=== PATIENT | male | born 1940 | race Caucasian/White ===

== ENCOUNTER 2016-10-07 20:50 | Emergency (ER) | payer MEDICARE, BC ==
[2016-10-07] MEDS ORDERED: methylPREDNISolone Sodium Succinate 125 MG/2 ML SDV IVPUSH ONE (20:57)
[2016-10-07] MEDS ORDERED: Sodium Chloride 0.9% 1,000 ML IV SCH (21:00)
[2016-10-07] MEDS ORDERED: diphenhydrAMINE 50 MG/ML SDV IVPUSH ONE (21:32)
[2016-10-07 21:43] VITALS: BP 132/78
--- NOTE | 2016-10-07 22:26 | EDM.PDOC ---
ED HPI GENERAL MEDICAL PROBLEM - General Chief Complaint: Allergic Reaction Stated Complaint: SWOLLEN TONGUE AND THROAT Time Seen by Provider: 10/07/16 20:54 Source of Information: Reports: Patient History Limitations: Reports: No Limitations - History of Present Illness INITIAL COMMENTS - FREE TEXT/NARRATIVE: History of present illness: [76-year-old male presents with a swollen tongue he said about 45 episodes of angioedema he usually treats himself with Benadryl and it goes away in this for studies comes the ER. He's had angioedema of his eyebrows and face but this first-time he's had of his tonsils been going on for last couple of months. Incidentally just a couple months ago result a swelling was increased from once a day to twice a day. Said no fevers or chills or cough cold symptoms. Denies any respiratory distress at this time.] Review of systems: As per history of present illness and below otherwise all systems reviewed and negative. Past medical history: As per history of present illness and as reviewed below otherwise noncontributory. Surgical history: As per history of present illness and as reviewed below otherwise noncontributory. Social history: No reported history of drug or alcohol abuse. Family history: As per history of present illness and as reviewed below otherwise noncontributory. Physical exam: HEENT: Atraumatic, normocephalic, pupils reactive, negative for conjunctival pallor or scleral icterus, tongue is swollen somewhat asymmetrically the right side more than the left. He speaks with a muffled voice but is exhibiting no respiratory distress, throat clear, neck supple, nontender, trachea midline. Lungs: Clear to auscultation, Heart: S1S2, regular, negative for clicks, rubs, or JVD. Abdomen: Soft, nondistended, nontender. Neuro: Awake, alert, oriented. Exam nonfocal. Diagnostics: [] Therapeutics: [Patient received IV fluids IV Benadryl and IV Solu-Medrol 125 mg and felt like his tongue swelling started to subside.] Impression: [Angioedema] Plan: [I suspect this is due to all today's and/or Diovan and I'm recommending a follow-up with his primary care doctor to discuss this with him or her. Since he had this increase in all today's 2 months ago and now is having more trouble I'm recommending he does take it once a day until he gets a chance to see his doctor. He sent out with some prednisone and will be using [id number] Benadryl as well to manage his problem return to the ER if he develops any respiratory difficulties.] Definitive disposition and diagnosis as appropriate pending reevaluation and review of above. - Related Data Allergies Allergy/AdvReac Type Severity Reaction Status Date / Time carbamazepine Allergy Rash Verified 10/07/16 21:20 diltiazem Allergy Itching Verified 10/07/16 21:26 Home Meds: Home Meds Aspirin [[place] Aspirin] 81 mg PO DAILY 03/25/13 [History] Ezetimibe/Simvastatin [Vytorin 10-40 mg Tablet] 1 tab PO DAILY 03/25/13 [History ] Furosemide 40 mg PO DAILY 03/25/13 [History] Indomethacin [Indocin] 25 mg PO TID PRN 03/25/13 [History] Metoprolol Succinate [Toprol XL] 75 mg PO BID 03/25/13 [History] Potassium Chloride 10 meq PO BID 03/25/13 [History] Ramipril [Altace] 10 mg PO BID 03/25/13 [History] Valsartan/Hydrochlorothiazide [[place] HCTZ 160-25 MG] 160 tab PO DAILY 03/25/13 [History] metFORMIN [Glucophage] 500 mg PO BID 03/25/13 [History] Nitroglycerin [Nitrostat] 0.4 mg SL ASDIRECTED PRN 01/26/15 [History] Sertraline [Zoloft] 50 mg PO DAILY 01/26/15 [History] Past Medical History HEENT History: Reports: Hard of Hearing Cardiovascular History: Reports: Afib, Aneurysm, Hypertension, [place] Musculoskeletal History: Reports: Arthritis Neurological History: Reports: Headaches, Chronic, Migraines Endocrine/Metabolic History: Reports: Diabetes, Type II - Past Surgical History Cardiovascular Surgical History: Reports: Coronary Artery Bypass, Coronary Artery Stent, Other (See Below) Other Cardiovascular Surgeries/Procedures: electric cardioversion Social & Family History - Tobacco Use Smoking Status *Q: Never Smoker - Caffeine Use Caffeine Use: Reports: Soda - Alcohol Use Days Per Week of Alcohol Use: 0 - Recreational Drug Use Recreational Drug Use: No ED ROS ALLERGIC REACTION - Review of Systems Review Of Systems: ROS reveals no pertinent complaints other than HPI. ED EXAM GENERAL NO PERIP PULSE - Physical Exam Exam: See Below Course - Vital Signs Last Recorded V/S: Last Vital Signs Temp 36.4 C 10/07/16 21:26 Pulse 55 L 10/07/16 21:42 Resp 18 10/07/16 21:42 BP 132/78 10/07/16 21:42 Pulse Ox 95 10/07/16 21:42 - Orders/Labs/Meds Orders: Active Orders 24 hr Category Date Time Status Sodium Chloride 0.9% [Normal Saline] 1,000 ml Med 10/07/16 21:00 Active IV ASDIRECTED Medication Orders Sodium Chloride (Normal Saline) 1,000 mls @ 250 mls/hr IV ASDIRECTED JEFF Last Admin: 10/07/16 21:09 Dose: 250 mls/hr Meds: Medications Generic Name Dose Route Start Last Admin Trade Name Freq PRN Reason Stop Dose Admin Sodium Chloride 1,000 mls @ 250 mls/hr 10/07/16 21:00 10/07/16 21:09 Normal Saline IV 250 mls/hr ASDIRECTED JEFF Administration Discontinued Medications Generic Name Dose Route Start Last Admin Trade Name Freq PRN Reason Stop Dose Admin Diphenhydramine HCl 50 mg 10/07/16 21:32 10/07/16 21:39 Benadryl IVPUSH 10/07/16 21:33 50 mg ONETIME ONE Administration Methylprednisolone Sodium Succinate 125 mg 10/07/16 20:57 10/07/16 21:09 Solu-Medrol IVPUSH 10/07/16 20:58 125 mg ONETIME ONE Administration Departure - Departure Time of Disposition: 22:24 Disposition: Home, Self-Care 01 Condition: Good Clinical Impression: Angioedema Qualifiers: Encounter type: initial encounter Qualified Code(s): T78.3XXA - Angioneurotic edema, initial encounter - Discharge Information Referrals: Frances Katz PA [Primary Care Provider] - Additional Instructions: By review we are thinking that this is due to your Diovan and/or Ramapril. I am recommending that you decrease your Ramapril to once a day until you see your doctor. - My Orders Last 24 Hours: My Active Orders 10/07/16 21:00 Sodium Chloride 0.9% [Normal Saline] 1,000 ml IV ASDIRECTED - Assessment/Plan Last 24 Hours: My Active Orders 10/07/16 21:00 Sodium Chloride 0.9% [Normal Saline] 1,000 ml IV ASDIRECTED
== END 2016-10-07 22:38 | disposition home or self-care (01) ==
LOC: JP.ED 20:50
DX: T78.3XXA Angioneurotic edema, initial encounter (principal); I25.2 Old myocardial infarction; I48.91 Unspecified atrial fibrillation; I10 Essential (primary) hypertension; M19.90 Unspecified osteoarthritis, unspecified site; E11.9 Type 2 diabetes mellitus without complications; Z95.1 Presence of aortocoronary bypass graft; Z95.5 Presence of coronary angioplasty implant and graft; Z98.890 Other specified postprocedural states; Z79.82 Long term (current) use of aspirin; Z79.84 Long term (current) use of oral hypoglycemic drugs; Z79.899 Other long term (current) drug therapy; Z88.8 Allergy status to other drugs, medicaments and biological substances
CPT/HCPCS: 96361; 96374; 96375; 99283; J1200; J2930; J7040; 99284

== ENCOUNTER 2016-11-28 17:01 | Emergency (ER) | payer MEDICARE, BC ==
[2016-11-28] MEDS ORDERED: Lidocaine 1% 20 ML MDV INJECT ONE (17:17)
--- NOTE | 2016-11-28 17:26 | EDM.PDOC ---
ED HPI GENERAL MEDICAL PROBLEM - General Chief Complaint: Laceration Stated Complaint: CUT LEFT RING FINGER Time Seen by Provider: 11/28/16 17:15 Source of Information: Reports: Patient History Limitations: Reports: No Limitations - History of Present Illness INITIAL COMMENTS - FREE TEXT/NARRATIVE: Cash is a 76-year-old diabetic male who presents to the emergency department today after sustaining a crush injury to his left fourth digit. Patient reports he got his finger stuck in between the slats of the garage door as it was closing. Tetanus is up-to-date, patient denies any other injuries. Patient has not taken anything for pain prior to arrival. Onset: Today, Sudden left ring finger\ Pain Score (Numeric/FACES): 5 - Related Data Allergies Allergy/AdvReac Type Severity Reaction Status Date / Time carbamazepine Allergy Rash Verified 10/07/16 21:20 diltiazem Allergy Itching Verified 10/07/16 21:26 hydrochlorothiazide Allergy Swollen Verified 11/28/16 17:51 Tongue ramipril Allergy Swollen Verified 11/28/16 17:51 Tongue valsartan Allergy Swollen Verified 11/28/16 17:51 Tongue Home Meds: Home Meds Aspirin [[place] Aspirin] 81 mg PO DAILY 03/25/13 [History] Ezetimibe/Simvastatin [Vytorin 10-40 mg Tablet] 1 tab PO DAILY 03/25/13 [History ] Furosemide 40 mg PO DAILY 03/25/13 [History] Indomethacin [Indocin] 25 mg PO TID PRN 03/25/13 [History] Metoprolol Succinate [Toprol XL] 75 mg PO BID 03/25/13 [History] Potassium Chloride 10 meq PO BID 03/25/13 [History] Ramipril [Altace] 10 mg PO BID 03/25/13 [History] Valsartan/Hydrochlorothiazide [[place] HCTZ 160-25 MG] 160 tab PO DAILY 03/25/13 [History] metFORMIN [Glucophage] 500 mg PO BID 03/25/13 [History] Nitroglycerin [Nitrostat] 0.4 mg SL ASDIRECTED PRN 01/26/15 [History] Sertraline [Zoloft] 50 mg PO DAILY 01/26/15 [History] Past Medical History HEENT History: Reports: Hard of Hearing Cardiovascular History: Reports: Afib, Aneurysm, Hypertension, [place] Musculoskeletal History: Reports: Arthritis Neurological History: Reports: Headaches, Chronic, Migraines Endocrine/Metabolic History: Reports: Diabetes, Type II - Past Surgical History Cardiovascular Surgical History: Reports: Coronary Artery Bypass, Coronary Artery Stent, Other (See Below) Other Cardiovascular Surgeries/Procedures: electric cardioversion Social & Family History - Tobacco Use Smoking Status *Q: Never Smoker - Caffeine Use Caffeine Use: Reports: Soda - Alcohol Use Days Per Week of Alcohol Use: 0 - Recreational Drug Use Recreational Drug Use: No ED ROS GENERAL - Review of Systems Review Of Systems: ROS reveals no pertinent complaints other than HPI. ED EXAM, SKIN/RASH Exam: See Below Exam Limited By: No Limitations General Appearance: Alert, WD/WN, No Apparent Distress Respiratory/Chest: No Respiratory Distress, Lungs Clear Cardiovascular: Regular Rate, Rhythm Extremities: Normal Inspection, Normal Range of Motion Neurological: Alert, Oriented, CN II-XII Intact Psychiatric: Normal Affect, Normal Mood Skin: Warm, Dry, Other (U-shaped 2 mm x 3 mm crush injury/laceration to palmar aspect of left fourth digit, distal phalanges. Concern for open fracture, x-ray pending.) ED SKIN PROCEDURES - Laceration/Wound Repair Left Finger Appearance: Subcutaneous Distal NVT: Neuro & Vascular Intact, No Tendon Injury Anesthetic Type: Digital Local Anesthesia - Lidocaine (Xylocaine): 1% Plain Local Anesthetic Volume: Other (10) Exploration/Debridement/Repair: Wound Explored Closed with: Sutures Suture Size: other (5-0) # of Sutures: 10 (Ethilon) Suture Size: other Course - Vital Signs Last Recorded V/S: Last Vital Signs Temp 36.5 C 11/28/16 17:30 Pulse 59 L 11/28/16 17:30 Resp 17 11/28/16 17:30 BP 138/67 11/28/16 17:30 Pulse Ox 97 11/28/16 17:30 Cash is a diabetic 76-year-old male who presents to the emergency department today after sustaining a finger laceration after getting finger stuck in between the panels of his garage door. Please refer to history of present illness and focused exam, laceration is full-thickness at the distal phalangeal portion of his left fourth digit, palmar portion. X-ray was obtained to rule out tuft fracture and on my review is negative. A digital block was perfomred on patient, he tolerated well and achieved good anesthesia. Laceration repair was done as noted in procedure note. Wound care was discussed in detail. Bacitracin and tube gauze was applied, patient was instructed to apply bacitracin twice daily for the next 3 days and keep wound covered if there is any chance he would get it dirty. Given patient's diabetic history and location of his laceration I am going to start him on Keflex for infection prophylaxis. Patient can have sutures removed in 7-10 days, reasons to return to the emergency department were discussed, patient and are agreeable to plan of care and he was discharged in stable condition. - Orders/Labs/Meds Orders: Active Orders 24 hr Category Date Time Status Fingers Fourth Digit Lt F3 [CR] Stat Exams 11/28/16 17:17 Taken Bacitracin [Bacitracin Oint 1 GM] Med 11/28/16 18:03 Once 1 dose TOP ONETIME ONE Meds: Medications Discontinued Medications Generic Name Dose Route Start Last Admin Trade Name Freq PRN Reason Stop Dose Admin Lidocaine HCl 20 ml 11/28/16 17:17 11/28/16 17:22 Xylocaine 1% INJECT 11/28/16 17:18 20 ml ONETIME ONE Administration Departure - Departure Time of Disposition: 18:45 Disposition: Home, Self-Care 01 Condition: Good Clinical Impression: Laceration of finger Qualifiers: Encounter type: initial encounter Finger: ring finger Damage to nail status: without damage Foreign body presence: without foreign body Laterality: left Qualified Code(s): S61.215A - Laceration without foreign body of left ring finger without damage to nail, initial encounter - Discharge Information Instructions: Laceration Care, Adult, [id number], Stitches, [place], or Adhesive Wound Closure, [id number] Referrals: Frances Katz PA [Primary Care Provider] - Forms: ED Department Discharge Additional Instructions: Keep wound covered for 24 hours. Apply Bacitracin twice daily for the first 3 days. Keep covered/protected if any chance of getting wound dirty. Take Keflex as prescribed to prevent infection. If you experience any signs of infection since as increased redness, swelling, drainage, please be reevaluated. It was nice meeting you. Take care. - My Orders Last 24 Hours: My Active Orders 11/28/16 17:17 Fingers Fourth Digit Lt F3 [CR] Stat 11/28/16 18:03 Bacitracin [Bacitracin Oint 1 GM] 1 dose TOP ONETIME ONE - Assessment/Plan Last 24 Hours: My Active Orders 11/28/16 17:17 Fingers Fourth Digit Lt F3 [CR] Stat 11/28/16 18:03 Bacitracin [Bacitracin Oint 1 GM] 1 dose TOP ONETIME ONE
[2016-11-28 17:31] VITALS: BP 138/67
[2016-11-28] MEDS ORDERED: Bacitracin Oint 1 GM U/D Packet TOP ONE (18:03)
--- NOTE | 2016-12-01 10:02 | CR ---
Left fourth finger There is normal alignment. There is no fracture. There is a soft tissue injury of the distal finger. Impression: 1. Soft tissue injury without fracture.
== END 2016-11-28 18:24 | disposition home or self-care (01) ==
LOC: JP.ED 17:01
DX: S61.215A Laceration without foreign body of left ring finger without damage to nail, initial encounter (principal); Z88.8 Allergy status to other drugs, medicaments and biological substances; Z79.82 Long term (current) use of aspirin; E11.9 Type 2 diabetes mellitus without complications; Z79.84 Long term (current) use of oral hypoglycemic drugs; Z79.899 Other long term (current) drug therapy; W23.0XXA Caught, crushed, jammed, or pinched between moving objects, initial encounter
CPT/HCPCS: 12001; 73140-26-F3; 73140-F3; 99282-25; 99283

== ENCOUNTER 2017-06-19 07:27 | Emergency (ER) | payer MEDICARE, BC ==
[2017-06-19 07:40] VITALS: BP 146/63
[2017-06-19] MEDS ORDERED: Acetaminophen/oxyCODONE 325-5 MG Tab PO ONE (07:49)
[2017-06-19] MEDS ORDERED: HYDROmorphone 0.5 MG/0.5 ML Syringe IM ONE (07:49)
--- NOTE | 2017-06-19 07:56 | EDM.PDOC ---
ED HPI GENERAL MEDICAL PROBLEM - General Chief Complaint: Upper Extremity Injury/Pain Stated Complaint: LEFT SHOULDER PAIN Time Seen by Provider: 06/19/17 07:53 Source of Information: Reports: Patient History Limitations: Reports: No Limitations - History of Present Illness INITIAL COMMENTS - FREE TEXT/NARRATIVE: Pt had a rotator cuff repair done in Mar. Everything went well. He was not doing anything particularly different yesterday and he did not have a fall. H got up this am and he could not move his shoulder and he is having alot of pain. Onset: Today Duration: Hour(s): Location: Reports: Upper Extremity, Left Associated Symptoms: Reports: No Other Symptoms Left Anterior Shoulder Pain Score (Numeric/FACES): 10 - Related Data Allergies Allergy/AdvReac Type Severity Reaction Status Date / Time carbamazepine Allergy Rash Verified 10/07/16 21:20 diltiazem Allergy Itching Verified 10/07/16 21:26 hydrochlorothiazide Allergy Swollen Verified 11/28/16 17:51 Tongue ramipril Allergy Swollen Verified 11/28/16 17:51 Tongue valsartan Allergy Swollen Verified 11/28/16 17:51 Tongue Home Meds: Home Meds Aspirin [[place] Aspirin] 81 mg PO DAILY 03/25/13 [History] Ezetimibe/Simvastatin [Vytorin 10-40 mg Tablet] 1 tab PO DAILY 03/25/13 [History ] Furosemide 40 mg PO DAILY 03/25/13 [History] Indomethacin [Indocin] 25 mg PO TID PRN 03/25/13 [History] Metoprolol Succinate [Toprol XL] 75 mg PO BID 03/25/13 [History] Potassium Chloride 10 meq PO BID 03/25/13 [History] Ramipril [Altace] 10 mg PO BID 03/25/13 [History] Valsartan/Hydrochlorothiazide [[place] HCTZ 160-25 MG] 160 tab PO DAILY 03/25/13 [History] metFORMIN [Glucophage] 500 mg PO BID 03/25/13 [History] Nitroglycerin [Nitrostat] 0.4 mg SL ASDIRECTED PRN 01/26/15 [History] Sertraline [Zoloft] 50 mg PO DAILY 01/26/15 [History] Past Medical History HEENT History: Reports: Hard of Hearing Cardiovascular History: Reports: Afib, Aneurysm, Hypertension, [place] Musculoskeletal History: Reports: Arthritis Neurological History: Reports: Headaches, Chronic, Migraines Psychiatric History: Reports: Anxiety, Depression Endocrine/Metabolic History: Reports: Diabetes, Type II - Infectious Disease History Infectious Disease History: Reports: Chicken Pox, Measles, Mumps - Past Surgical History Cardiovascular Surgical History: Reports: Coronary Artery Bypass, Coronary Artery Stent, Other (See Below) Other Cardiovascular Surgeries/Procedures: electric cardioversion Social & Family History - Tobacco Use Smoking Status *Q: Never Smoker - Caffeine Use Caffeine Use: Reports: Soda, Tea - Recreational Drug Use Recreational Drug Use: No Review of Systems - Review of Systems Review Of Systems: See Below Constitutional: Reports: No Symptoms Eyes: Reports: No Symptoms Ears: Reports: No Symptoms Nose: Reports: No Symptoms Mouth/Throat: Reports: No Symptoms Respiratory: Reports: No Symptoms Cardiovascular: Reports: No Symptoms GI/Abdominal: Reports: No Symptoms Genitourinary: Reports: No Symptoms Musculoskeletal: Reports: Other ( severe pain and swelling in the ant left shoulder. ) Skin: Reports: No Symptoms ED EXAM, GENERAL - Physical Exam Exam: See Below Free Text/Narrative:: pt arrived with acute pain in the anterior portion of the left shoulder. This area appears swollen Exam Limited By: No Limitations General Appearance: Alert, Anxious, Moderate Distress Ears: Normal TMs Nose: Normal Inspection Throat/Mouth: Normal Inspection Head: Atraumatic Neck: Normal Inspection Respiratory/Chest: No Respiratory Distress Cardiovascular: Regular Rate, Rhythm GI/Abdominal: Soft, Non-Tender (Male) Exam: Deferred Rectal (Males) Exam: Deferred (left shoulder is swollen anteriorly He is very tender in the area. He is his left arm. not able to lift ) Course - Vital Signs Last Recorded V/S: Last Vital Signs Temp 36.6 C 06/19/17 07:39 Pulse 50 L 06/19/17 07:39 Resp 18 06/19/17 07:39 BP 146/63 H 06/19/17 07:39 Pulse Ox 96 06/19/17 07:39 - Orders/Labs/Meds Labs: Laboratory Tests 06/19/17 06/19/17 06/19/17 Range/Units 08:59 08:59 08:59 WBC 15.1 H (4.5-11.0) K/uL RBC 4.61 (4.30-5.90) M/uL Hgb 13.5 D (12.0-15.0) g/dL Hct 39.8 L (40.0-54.0) % MCV 86 (80-98) fL MCH 29 (27-31) pg MCHC 34 (32-36) % Plt Count 174 (150-400) K/uL Neut % (Auto) 77 H (36-66) % Lymph % (Auto) 9 L (24-44) % [place] % (Auto) 12 H (2-6) % Eos % (Auto) 1 L (2-4) % Baso % (Auto) 1 (0-1) % ESR 24 H (0-20) mm/hr C-Reactive Protein 0.96 H (0.0-0.3) mg/dL Meds: Medications Discontinued Medications Generic Name Dose Route Start Last Admin Trade Name Freq PRN Reason Stop Dose Admin Hydromorphone HCl 0.5 mg 06/19/17 07:49 06/19/17 07:55 Dilaudid IM 06/19/17 07:50 0.5 mg ONETIME ONE Administration Oxycodone/Acetaminophen 1 tab 06/19/17 07:49 06/19/17 07:55 Percocet 325-5 Mg PO 06/19/17 07:50 1 tab ONETIME ONE Administration - Re-Assessments/Exams Free Text/Narrative Re-Assessment/Exam: 06/19/17 10:01 us was neg, his crp is .93, his wbc is 15,400 Departure - Departure Time of Disposition: 09:58 Disposition: Home, Self-Care 01 Condition: Fair Clinical Impression: Acute pain of left shoulder, Status post rotator cuff repair - Discharge Information Instructions: Shoulder Pain Referrals: Frances Katz PA [Primary Care Provider] - Forms: ED Department Discharge Care Plan Goals: [facility] for a ortho consult
--- NOTE | 2017-06-19 09:03 | CR ---
Shoulder Comp Lt INDICATION: severe pain in the leftshoulder COMPARISON: None FINDINGS: 3 views. No fracture, dislocation, or other acute bony abnormality. Inferior acromial s pur. Joint space narrowing in the AC joint and glenohumeral joint. Postoperative changes in the cervi bassam spine. Sternotomy wires.
--- NOTE | 2017-06-19 09:39 | US ---
Extremity Non Vascular Lt INDICATION: recent rotator cuff surgery swelling in shoulder FINDINGS: The left shoulder soft tissues were imaged for evaluation of possible fluid collections, hematomas, o r abscess. Study is normal. Normal right shoulder images obtained for comparison. IMPRESSION: No evidence of hematoma, abscess, or abnormal fluid collection in the left shoulder.
== END 2017-06-19 10:08 | disposition home or self-care (01) ==
LOC: JP.ED 07:27
DX: M25.512 Pain in left shoulder (principal); I10 Essential (primary) hypertension; E11.9 Type 2 diabetes mellitus without complications; I25.2 Old myocardial infarction; M19.90 Unspecified osteoarthritis, unspecified site; F41.9 Anxiety disorder, unspecified; F32.9 Major depressive disorder, single episode, unspecified; Z98.890 Other specified postprocedural states; Z79.899 Other long term (current) drug therapy; Z79.82 Long term (current) use of aspirin; Z79.84 Long term (current) use of oral hypoglycemic drugs; Z88.8 Allergy status to other drugs, medicaments and biological substances; S46.012A Strain of muscle(s) and tendon(s) of the rotator cuff of left shoulder, initial encounter; X58.XXXA Exposure to other specified factors, initial encounter
CPT/HCPCS: 36415; 73030; 73221; 76881; 85025; 85651; 86140; 96372; 99284; A9270; J1170

== ENCOUNTER 2017-09-19 12:41 | Emergency (ER) | payer MEDICARE, BC ==
[2017-09-19 13:04] VITALS: BP 162/67
[2017-09-19] MEDS ORDERED: Acetaminophen/HYDROcodone 325-5 MG Tab PO ONE (13:27)
--- NOTE | 2017-09-19 13:40 | EDM.PDOC ---
ED HPI GENERAL MEDICAL PROBLEM - General Chief Complaint: General Stated Complaint: FELL AND HURT RIB Time Seen by Provider: 09/19/17 13:09 Source of Information: Reports: Patient History Limitations: Reports: No Limitations - History of Present Illness INITIAL COMMENTS - FREE TEXT/NARRATIVE: 77 yo male presents to ER after tripping on last step and landing against table. struck left lateral chest wall on table and abrasion to left elbow. Denies hitting his head or LOC. pain in lower lateral ribs and pain with deep breath Left Thoracic Pain Score (Numeric/FACES): 8 - Related Data Allergies Allergy/AdvReac Type Severity Reaction Status Date / Time carbamazepine Allergy Rash Verified 09/19/17 13:04 diltiazem Allergy Itching Verified 09/19/17 13:04 hydrochlorothiazide Allergy Swollen Verified 09/19/17 13:04 Tongue ramipril Allergy Swollen Verified 09/19/17 13:04 Tongue valsartan Allergy Swollen Verified 09/19/17 13:04 Tongue Home Meds: Home Meds Aspirin [[place] Aspirin] 81 mg PO DAILY 03/25/13 [History] Ezetimibe/Simvastatin [Vytorin 10-40 mg Tablet] 1 tab PO DAILY 03/25/13 [History ] Furosemide 40 mg PO DAILY 03/25/13 [History] Indomethacin [Indocin] 25 mg PO TID PRN 03/25/13 [History] Metoprolol Succinate [Toprol XL] 75 mg PO BID 03/25/13 [History] Potassium Chloride 10 meq PO BID 03/25/13 [History] metFORMIN [Glucophage] 500 mg PO BID 03/25/13 [History] Nitroglycerin [Nitrostat] 0.4 mg SL ASDIRECTED PRN 01/26/15 [History] Sertraline [Zoloft] 50 mg PO DAILY 01/26/15 [History] Terbinafine HCl [Terbinafine] 250 mg PO DAILY 09/19/17 [History] Past Medical History HEENT History: Reports: Hard of Hearing, Impaired Vision Cardiovascular History: Reports: Afib, Aneurysm, Bypass, Hypertension, [place] Musculoskeletal History: Reports: Arthritis Neurological History: Reports: Headaches, Chronic, Migraines Psychiatric History: Reports: Anxiety, Depression Endocrine/Metabolic History: Reports: Diabetes, Type II - Infectious Disease History Infectious Disease History: Reports: Chicken Pox, Measles, Mumps - Past Surgical History HEENT Surgical History: Reports: Tonsillectomy Cardiovascular Surgical History: Reports: Coronary Artery Bypass, Coronary Artery Stent, Other (See Below) Other Cardiovascular Surgeries/Procedures: electric cardioversion GI Surgical History: Reports: Colonoscopy Neurological Surgical History: Reports: Spinal Fusion Musculoskeletal Surgical History: Reports: Shoulder Surgery Social & Family History - Tobacco Use Smoking Status *Q: Never Smoker - Caffeine Use Caffeine Use: Reports: Soda - Recreational Drug Use Recreational Drug Use: No ED ROS GENERAL - Review of Systems Review Of Systems: See Below Constitutional: Denies: Fever, Chills Respiratory: Reports: Other (left chest wall pain). Denies: Cough GI/Abdominal: Denies: Abdominal Pain ED EXAM, GENERAL - Physical Exam Exam: See Below Exam Limited By: No Limitations General Appearance: Alert, WD/WN, No Apparent Distress Head: Atraumatic, Normocephalic Neck: Normal Inspection, Supple, Non-Tender, Full Range of Motion Respiratory/Chest: No Respiratory Distress, Lungs Clear, Normal Breath Sounds, No Accessory Muscle Use, Other (left lower lateral rib pain to palp) Cardiovascular: Regular Rate, Rhythm, No Murmur GI/Abdominal: Normal Bowel Sounds, Soft, Non-Tender, No Organomegaly Neurological: Alert, Oriented Psychiatric: Normal Affect, Normal Mood Skin Exam: Warm, Dry, Intact Course - Vital Signs Last Recorded V/S: Last Vital Signs Temp 36.9 C 09/19/17 13:09 Pulse 59 L 09/19/17 13:09 Resp 20 09/19/17 13:09 BP 162/67 H 09/19/17 13:09 Pulse Ox 96 09/19/17 13:09 - Orders/Labs/Meds Orders: Active Orders 24 hr Category Date Time Status Chest 2V [CR] Stat Exams 09/19/17 13:27 Taken Ribs 2V wo Chest Lt [CR] Stat Exams 09/19/17 13:28 Taken Meds: Medications Discontinued Medications Generic Name Dose Route Start Last Admin Trade Name Freq PRN Reason Stop Dose Admin Hydrocodone Bitart/Acetaminophen 1 tab 09/19/17 13:27 09/19/17 13:32 [place] 325-5 Mg PO 09/19/17 13:28 1 tab ONETIME ONE Administration - Radiology Interpretation Free Text/Narrative:: preliminary read rib x-ray no acute fractures Departure - Departure Time of Disposition: 13:59 Disposition: Home, Self-Care 01 Condition: Good Clinical Impression: Acute chest wall pain Fall Qualifiers: Encounter type: initial encounter Qualified Code(s): W19.XXXA - Unspecified fall, initial encounter - Discharge Information *PRESCRIPTION DRUG MONITORING PROGRAM REVIEWED*: Yes *COPY OF PRESCRIPTION DRUG MONITORING REPORT IN PATIENT GUERO: No Instructions: Chest Wall Pain, [id number] Referrals: Frances Katz PA [Primary Care Provider] - Forms: ED Department Discharge Additional Instructions: norco 1 tablet as needed for severe pain every 6 hours acetaminophen 1000 mg every 6 hours not to exceed 3000 mg every 24 hours deep breaths every hour while awake - My Orders Last 24 Hours: My Active Orders 09/19/17 13:27 Chest 2V [CR] Stat 09/19/17 13:28 Ribs 2V wo Chest Lt [CR] Stat - Assessment/Plan Last 24 Hours: My Active Orders 09/19/17 13:27 Chest 2V [CR] Stat 09/19/17 13:28 Ribs 2V wo Chest Lt [CR] Stat
--- NOTE | 2017-09-21 09:19 | CR ---
Chest with left RIBS Findings: The heart and vascular structures are within normal limits. There are no infiltrates or eff usions. The patient has had a prior CABG procedure. Views of the left ribs demonstrate normal alignme nt. No fracture is demonstrated. Impression: 1. No acute findings.
== END 2017-09-19 14:19 | disposition home or self-care (01) ==
LOC: JP.ED 12:41
DX: R07.89 Other chest pain (principal); S50.312A Abrasion of left elbow, initial encounter; I10 Essential (primary) hypertension; E11.9 Type 2 diabetes mellitus without complications; F41.9 Anxiety disorder, unspecified; F32.9 Major depressive disorder, single episode, unspecified; Z79.82 Long term (current) use of aspirin; Z79.84 Long term (current) use of oral hypoglycemic drugs; Z95.1 Presence of aortocoronary bypass graft; Z95.5 Presence of coronary angioplasty implant and graft; Z88.8 Allergy status to other drugs, medicaments and biological substances; W01.198A Fall on same level from slipping, tripping and stumbling with subsequent striking against other object, initial encounter
CPT/HCPCS: 71046; 71100; 99284; A9270

== ENCOUNTER 2020-01-08 22:58 | Observation (INO) | payer MEDICARE ==
[2020-01-08] MEDS ORDERED: Diltiazem 25 MG/5 ML SDV IVPUSH ONE (23:22)
--- NOTE | 2020-01-08 23:24 | EDM.PDOC ---
ED HPI GENERAL MEDICAL PROBLEM - General Chief Complaint: Cardiovascular Problem Stated Complaint: IRREGULAR HEARTBEAT Time Seen by Provider: 01/08/20 23:23 Source of Information: Reports: Patient, Family History Limitations: Reports: No Limitations - History of Present Illness INITIAL COMMENTS - FREE TEXT/NARRATIVE: pt arrived feeling like he was in atrial fib. which he thought started about 1 hour ago. He did not have chest pain. He was hopitalized 1 week ago in [facility]. He was converted with cardizem. He is on elequist. Duration: Hour(s): Location: Reports: Chest Associated Symptoms: Reports: Other (pt has a rapid heart rhythm) denies pain Pain Score (Numeric/FACES): 0 - Related Data Allergies Allergy/AdvReac Type Severity Reaction Status Date / Time carbamazepine Allergy Rash Verified 01/08/20 23:15 hydrochlorothiazide Allergy Swollen Verified 01/08/20 23:15 Tongue ramipril Allergy Swollen Verified 01/08/20 23:15 Tongue valsartan Allergy Swollen Verified 01/08/20 23:15 Tongue Home Meds: Home Meds Aspirin [[place] Aspirin] 81 mg PO DAILY 03/25/13 [History] Ezetimibe/Simvastatin [Vytorin 10-40 mg Tablet] 1 tab PO DAILY 03/25/13 [History] Furosemide 40 mg PO DAILY 03/25/13 [History] Indomethacin [Indocin] 25 mg PO TID PRN 03/25/13 [History] Metoprolol Succinate [Toprol XL] 75 mg PO BID 03/25/13 [History] Potassium Chloride 10 meq PO BID 03/25/13 [History] metFORMIN [Glucophage] 500 mg PO BID 03/25/13 [History] Nitroglycerin [Nitrostat] 0.4 mg SL ASDIRECTED PRN 01/26/15 [History] Sertraline [Zoloft] 50 mg PO DAILY 01/26/15 [History] Terbinafine HCl [Terbinafine] 250 mg PO DAILY 09/19/17 [History] Past Medical History HEENT History: Reports: Hard of Hearing, Impaired Vision Cardiovascular History: Reports: Afib, Aneurysm, Bypass, Hypertension, [place] Musculoskeletal History: Reports: Arthritis Neurological History: Reports: Headaches, Chronic, Migraines Psychiatric History: Reports: Anxiety, Depression Endocrine/Metabolic History: Reports: Diabetes, Type II - Infectious Disease History Infectious Disease History: Reports: Chicken Pox, Measles, Mumps - Past Surgical History HEENT Surgical History: Reports: Tonsillectomy Cardiovascular Surgical History: Reports: Coronary Artery Bypass, Coronary Artery Stent, Other (See Below) Other Cardiovascular Surgeries/Procedures: electric cardioversion GI Surgical History: Reports: Colonoscopy Neurological Surgical History: Reports: Spinal Fusion Musculoskeletal Surgical History: Reports: Shoulder Surgery Social & Family History - Caffeine Use Caffeine Use: Reports: Soda ED ROS GENERAL - Review of Systems Review Of Systems: See Below Constitutional: Reports: Diaphoresis HEENT: Reports: No Symptoms Respiratory: Reports: Shortness of Breath Cardiovascular: Reports: Palpitations Endocrine: Reports: No Symptoms GI/Abdominal: Reports: No Symptoms : Reports: No Symptoms Musculoskeletal: Reports: No Symptoms ED EXAM, GENERAL - Physical Exam Exam: See Below Free Text/Narrative:: pt arrived with ahistory of going into atrial fib about 1 hour ago. He did not have chest pain. He was very mildly sob. Exam Limited By: No Limitations General Appearance: Alert, No Apparent Distress, Anxious Ears: Normal TMs Nose: Normal Inspection Throat/Mouth: Normal Inspection Head: Atraumatic Neck: Normal Inspection Respiratory/Chest: No Respiratory Distress Cardiovascular: Irregularly Irregular, Other ( atrial fib 100-120. ) GI/Abdominal: Soft, Non-Tender (Male) Exam: Deferred Rectal (Males) Exam: Deferred Back Exam: Normal Inspection Extremities: Normal Inspection Neurological: Alert, Oriented, Normal Cognition Psychiatric: Normal Affect Course - Vital Signs Last Recorded V/S: Last Vital Signs Temp 36.1 C 01/08/20 23:25 Pulse 94 01/08/20 23:58 Resp 17 01/08/20 23:25 BP 138/78 01/08/20 23:58 Pulse Ox 96 01/08/20 23:25 - Orders/Labs/Meds Orders: Active Orders 24 hr Category Date Time Status EKG Documentation Completion [RC] ASDIRECTED Care 01/08/20 23:33 Active Diltiazem [Cardizem] 100 mg Med 01/08/20 23:45 Active Sodium Chloride 0.9% [Normal Saline] 100 ml IV TITRATE Sodium Chloride 0.9% [Normal Saline] 1,000 ml Med 01/08/20 23:30 Active IV ASDIRECTED EKG 12 Lead [EK] Routine Ther 01/08/20 23:33 Ordered Medication Orders Sodium Chloride (Normal Saline) 1,000 mls @ 100 mls/hr IV ASDIRECTED JEFF Last Admin: 01/08/20 23:46 Dose: 100 mls/hr Documented by: CECELIA Diltiazem HCl 100 mg/ Sodium (Chloride) 100 mls @ 5 mls/hr IV TITRATE JEFF; Protocol Last Admin: 01/09/20 00:11 Dose: 5 mg/hr, 5 mls/hr Documented by: CECELIA Labs: Laboratory Tests 01/08/20 01/08/20 01/08/20 Range/Units 23:33 23:33 23:33 WBC 9.7 (4.5-11.0) K/uL RBC 4.31 (4.30-5.90) M/uL Hgb 13.0 (12.0-15.0) g/dL Hct 40.0 (40.0-54.0) % MCV 93 (80-98) fL MCH 30 (27-31) pg MCHC 33 (32-36) % Plt Count 111 L (150-400) K/uL Neut % (Auto) 49 (36-66) % Lymph % (Auto) 25 (24-44) % [place] % (Auto) 23 H (2-6) % Eos % (Auto) 1 L (2-4) % Baso % (Auto) 1 (0-1) % Sodium 137 L (140-148) mmol/L Potassium 3.7 (3.6-5.2) mmol/L Chloride 101 (100-108) mmol/L Carbon Dioxide 22 (21-32) mmol/L Anion Gap 17.7 H (5.0-14.0) mmol/L BUN 18 (7-18) mg/dL Creatinine 0.9 (0.8-1.3) mg/dL Est Cr Clr Drug Dosing 75.44 mL/min Estimated GFR (MDRD) > 60 (>60) Glucose 126 H (74-106) mg/dL Calcium 9.3 (8.5-10.1) mg/dL Magnesium 1.4 L (1.8-2.4) mg/dL Total Bilirubin 0.4 (0.2-1.0) mg/dL AST 25 (15-37) U/L ALT 36 (12-78) U/L Alkaline Phosphatase 84 (46-116) U/L Total Protein 7.3 (6.4-8.2) g/dL Albumin 4.0 (3.4-5.0) g/dL Globulin 3.3 (2.3-3.5) g/dL Albumin/Globulin Ratio 1.2 (1.2-2.2) TSH, Ultra Sensitive (0.358-3.740) uIU/mL 01/08/20 Range/Units 23:33 WBC (4.5-11.0) K/uL RBC (4.30-5.90) M/uL Hgb (12.0-15.0) g/dL Hct (40.0-54.0) % MCV (80-98) fL MCH (27-31) pg MCHC (32-36) % Plt Count (150-400) K/uL Neut % (Auto) (36-66) % Lymph % (Auto) (24-44) % [place] % (Auto) (2-6) % Eos % (Auto) (2-4) % Baso % (Auto) (0-1) % Sodium (140-148) mmol/L Potassium (3.6-5.2) mmol/L Chloride (100-108) mmol/L Carbon Dioxide (21-32) mmol/L Anion Gap (5.0-14.0) mmol/L BUN (7-18) mg/dL Creatinine (0.8-1.3) mg/dL Est Cr Clr Drug Dosing mL/min Estimated GFR (MDRD) (>60) Glucose (74-106) mg/dL Calcium (8.5-10.1) mg/dL Magnesium (1.8-2.4) mg/dL Total Bilirubin (0.2-1.0) mg/dL AST (15-37) U/L ALT (12-78) U/L Alkaline Phosphatase (46-116) U/L Total Protein (6.4-8.2) g/dL Albumin (3.4-5.0) g/dL Globulin (2.3-3.5) g/dL Albumin/Globulin Ratio (1.2-2.2) TSH, Ultra Sensitive 1.893 (0.358-3.740) uIU/mL Meds: Medications Generic Name Dose Route Start Last Admin Trade Name Freq PRN Reason Stop Dose Admin Sodium Chloride 1,000 mls @ 100 mls/hr 01/08/20 23:30 01/08/20 23:46 Normal Saline IV 100 mls/hr ASDIRECTED JEFF Administration Diltiazem HCl 100 mg/ Sodium 100 mls @ 5 mls/hr 01/08/20 23:45 01/09/20 00:11 Chloride IV 5 mg/hr TITRATE JEFF 5 mls/hr Administration Protocol 5 MG/HR Discontinued Medications Generic Name Dose Route Start Last Admin Trade Name [place] PRN Reason Stop Dose Admin Diltiazem HCl 10 mg 01/08/20 23:22 01/08/20 23:48 Diltiazem IVPUSH 01/08/20 23:23 10 mg ONETIME ONE Administration Magnesium Oxide 400 mg 01/08/20 23:59 01/09/20 00:11 Magnesium Oxide PO 01/09/20 00:00 400 mg ONETIME ONE Administration - Re-Assessments/Exams Free Text/Narrative Re-Assessment/Exam: 01/09/20 00:29 pt had slightly low mag and he was given 400mg. He had good lab work otherwise. He was given a 10 mg bolus of cardizem and he was started on a cardizem drip. The drip did convert him 1 week ago . Departure - Departure Time of Disposition: 00:31 Disposition: Admitted As Inpatient 68 Condition: Fair Clinical Impression: Atrial fibrillation Referrals: Sourav Lorenzo MD [Primary Care Provider] - Forms: ED Department Discharge Care Plan Goals: admit to Dr Kent. Sepsis Event Note (ED) - Focused Exam Vital Signs: Vital Signs Temp Pulse Resp BP Pulse Ox 01/08/20 23:58 94 138/78 01/08/20 23:56 95 140/82 01/08/20 23:54 142/86 H 01/08/20 23:25 36.1 C 120 H 17 130/62 96 01/08/20 23:17 36.1 C 120 H 17 130/62 96 - My Orders Last 24 Hours: My Active Orders 01/08/20 23:30 Sodium Chloride 0.9% [Normal Saline] 1,000 ml IV ASDIRECTED 01/08/20 23:33 EKG Documentation Completion [RC] ASDIRECTED EKG 12 Lead [EK] Routine 01/08/20 23:45 Diltiazem [Cardizem] 100 mg Sodium Chloride 0.9% [Normal Saline] 100 ml IV TITRATE - Assessment/Plan Last 24 Hours: My Active Orders 01/08/20 23:30 Sodium Chloride 0.9% [Normal Saline] 1,000 ml IV ASDIRECTED 01/08/20 23:33 EKG Documentation Completion [RC] ASDIRECTED EKG 12 Lead [EK] Routine 01/08/20 23:45 Diltiazem [Cardizem] 100 mg Sodium Chloride 0.9% [Normal Saline] 100 ml IV TITRATE
[2020-01-08] MEDS ORDERED: Sodium Chloride 0.9% 1,000 ML IV SCH (23:30)
[2020-01-08] MEDS ORDERED: Diltiazem 100 MG in Sodium Chloride 0.9% 100 ML IV SCH (23:45)
[2020-01-08] MEDS ORDERED: Magnesium Oxide 400 MG Tab PO ONE (23:59)
[2020-01-09] MEDS ORDERED: Nitroglycerin 0.4 MG Tab.SL SL PRN (01:37)
[2020-01-09] MEDS ORDERED: Diltiazem 100 MG in Sodium Chloride 0.9% 100 ML IV SCH (01:45)
--- NOTE | 2020-01-09 07:20 | HP ---
CHIEF COMPLAINT: Chest tightness with a racing heart. HISTORY OF PRESENT ILLNESS: A 79-year-old who had an episode in [place] a week ago of atrial fibrillation, where he converted on a Cardizem drip and had been fine up until this evening, where he started having some chest tightness and a little bit of shortness of breath and feeling like his heart was racing; came into the emergency room for further evaluation; was noted to be in atrial fibrillation; was given a Cardizem bolus and then started on a Cardizem drip, which did help control his heart rate; but still is in atrial fibrillation. I was asked to admit the patient for further evaluation and treatment. Other than the above, the patient denies any other complaints. PAST MEDICAL HISTORY: 1. He has had 5 episodes of atrial fibrillation, has had to be cardioverted in the past, and states in 2002 had a myocardial infarction and bypass surgery at that time. 2. Type 2 diabetes mellitus. 3. Migraine headaches. 4. Cervical fusion in the past. 5. Essential hypertension. MEDICATIONS: 1. Allopurinol 300 mg daily. 2. Eliquis 5 mg b.i.d. 3. Aspirin 81 mg daily. 4. Atorvastatin 40 mg daily. 5. Vitamin D 1000 units daily. 6. Vitamin B12, 1000 mcg daily. 7. Diltiazem 240 mg extended release daily. 8. Hydrochlorothiazide 25 mg daily. 9. Indomethacin 25 mg t.i.d. with meals p.r.n. 10.Metformin 1000 mg b.i.d. 11.Toprol-XL 75 mg b.i.d. 12.Multivitamin. 13.Sublingual nitroglycerin. 14.[place]-3 fish oil. 15.Pantoprazole 40 mg daily. 16.Potassium chloride 10 mEq daily. 17.Sertraline 50 mg daily. 18.Terbinafine 250 mg daily. ALLERGIES: CARBAMAZEPINE, RAMIPRIL, AND VALSARTAN. SOCIAL HISTORY: Smoker but quit 5 years ago. No current alcohol use. FAMILY HISTORY: A cousin with atrial fibrillation but no first-degree relatives with heart trouble. REVIEW OF SYSTEMS: He denies headaches, vision changes, or upper respiratory symptoms; did have the chest pressure with some shortness of breath, now feels better; denies any nausea, vomiting, diarrhea, or constipation. No urinary problems are reported. No swelling in his legs. No skin problems. No orthopedic or neurologic complaints are reported. OBJECTIVE: VITAL SIGNS: Temperature 36.1; pulse 120, now is in the 80s to 90s; blood pressure 138/62; respirations 17; and O2 saturation 96% on room air. GENERAL: The patient is alert, oriented x3, in no distress, and resting comfortably. THROAT: Pharynx is clear. NECK: Supple. No adenopathy, thyromegaly, JVD, or carotid bruits. LUNGS: Clear. HEART: Irregularly regular. ABDOMEN: Soft and nontender. No mass or organomegaly is palpated. EXTREMITIES: No edema. Pedal pulses are palpable and equal bilaterally. SKIN: Negative. NEUROLOGIC: Cranial nerves II through XII appear to be grossly intact. He is alert and oriented. DIAGNOSTIC DATA: EKG showed atrial fibrillation. LABORATORY: Troponin is pending. White count 9.7, hemoglobin 13.0, and platelets 111,000. Sodium 137, potassium 3.7, chloride 101, BUN 18, and creatinine 0.9. Magnesium 1.4. Liver functions were normal. TSH was normal at 1.893. ASSESSMENT: 1. Atrial fibrillation. The patient is started on a Cardizem drip, which will continue. Admit him to the intensive care unit for observation. 2. History of coronary artery disease status post myocardial infarction and bypass surgery back in 2002. 3. Type 2 diabetes mellitus. 4. Essential hypertension. DISPOSITION: Transfer his care to the Hospitalist Service in the morning. Orlando Kent MD /[id number]
[2020-01-09] MEDS ORDERED: Pantoprazole 40 MG Tab.CR PO SCH (07:30)
[2020-01-09] MEDS ORDERED: metFORMIN 500 MG Tab PO SCH (08:00)
[2020-01-09] MEDS: POTASSIUM CHLORIDE 10 MEQ PO SCH ×2 (08:03→16:50)
[2020-01-09] MEDS ORDERED: Fish Oil/Omega-3 Fatty Acids 1 Gm Cap PO SCH (09:00)
[2020-01-09] MEDS ORDERED: Allopurinol 100 MG Tab PO SCH (09:00)
[2020-01-09] MEDS ORDERED: atorvaSTATin 20 MG Tab PO SCH (09:00)
[2020-01-09] MEDS ORDERED: Metoprolol Succinate 25 MG Tab.ER PO SCH (09:00)
[2020-01-09] MEDS ORDERED: Potassium Chloride 20 MEQ Tab.ER PO ONE (09:00)
[2020-01-09] MEDS ORDERED: Aspirin 81 MG Tab.EC PO SCH (09:00)
[2020-01-09] MEDS ORDERED: Metoprolol Succinate 50 MG Tab.ER (PTOM) PO SCH (09:15)
[2020-01-09] MEDS: Hydrochlorothiazide 25 MG Tab (PTOM) PO SCH (09:23)
[2020-01-09] MEDS: Apixaban 5 MG Tab (PTOM) PO SCH ×2 (09:23→20:12)
[2020-01-09] MEDS: ALLOPURINOL 300MG TAB (PTOM) PO SCH (09:24)
[2020-01-09] MEDS: SERTRALINE 50 MG PO SCH (09:24)
[2020-01-09] MEDS: Cholecalciferol (Vitamin D3) 25 MCG Tab PO SCH (09:25)
[2020-01-09] MEDS: Cyanocobalamin (Vitamin B12) 1,000 MCG Tab PO SCH (09:25)
[2020-01-09] MEDS: ATORVASTATIN 40MG TAB (PTOM) PO SCH (09:25)
[2020-01-09] MEDS: Multivitamins with Iron/Calcium/Folic Acid/Minerals Tab PO SCH (09:25)
[2020-01-09] MEDS: Terbinafine 250 MG Tab PO SCH ×2 (09:31→12:24)
--- NOTE | 2020-01-09 09:44 | PCM.PN ---
- General Info Date of Service: 01/09/20 Functional Status: Reports: Tolerating Diet - Review of Systems General: Reports: No Symptoms Pulmonary: Reports: No Symptoms Cardiovascular: Reports: Dyspnea on Exertion. Denies: Chest Pain, Palpitations, Orthopnea, Edema, Lightheadedness Gastrointestinal: Reports: No Symptoms Musculoskeletal: Reports: No Symptoms Skin: Reports: No Symptoms Neurological: Reports: No Symptoms Psychiatric: Reports: No Symptoms - Patient Data Vitals - Most Recent: Last Vital Signs Temp 97.7 F 01/09/20 08:00 Pulse 93 01/09/20 09:21 Resp 15 01/09/20 09:00 BP 145/66 H 01/09/20 09:21 Pulse Ox 95 01/09/20 09:00 Weight - Most Recent: 234 lb 3.2 oz I&O - Last 24 Hours: Intake & Output 01/08/20 01/09/20 01/09/20 22:59 06:59 14:59 Intake Total 400 Balance 400 Lab Results Last 24 Hours: Laboratory Results - last 24 hr 01/08/20 01/08/20 01/08/20 Range/Units 23:33 23:33 23:33 WBC 9.7 (4.5-11.0) K/uL RBC 4.31 (4.30-5.90) M/uL Hgb 13.0 (12.0-15.0) g/dL Hct 40.0 (40.0-54.0) % MCV 93 (80-98) fL MCH 30 (27-31) pg MCHC 33 (32-36) % Plt Count 111 L (150-400) K/uL Neut % (Auto) 49 (36-66) % Lymph % (Auto) 25 (24-44) % [place] % (Auto) 23 H (2-6) % Eos % (Auto) 1 L (2-4) % Baso % (Auto) 1 (0-1) % Sodium 137 L (140-148) mmol/L Potassium 3.7 (3.6-5.2) mmol/L Chloride 101 (100-108) mmol/L Carbon Dioxide 22 (21-32) mmol/L Anion Gap 17.7 H (5.0-14.0) mmol/L BUN 18 (7-18) mg/dL Creatinine 0.9 (0.8-1.3) mg/dL Est Cr Clr Drug Dosing 75.44 mL/min Estimated GFR (MDRD) > 60 (>60) Glucose 126 H (74-106) mg/dL Calcium 9.3 (8.5-10.1) mg/dL Magnesium 1.4 L (1.8-2.4) mg/dL Total Bilirubin 0.4 (0.2-1.0) mg/dL AST 25 (15-37) U/L ALT 36 (12-78) U/L Alkaline Phosphatase 84 (46-116) U/L Troponin I (0.000-0.056) ng/mL Total Protein 7.3 (6.4-8.2) g/dL Albumin 4.0 (3.4-5.0) g/dL Globulin 3.3 (2.3-3.5) g/dL Albumin/Globulin Ratio 1.2 (1.2-2.2) TSH, Ultra Sensitive (0.358-3.740) uIU/mL 01/08/20 01/09/20 01/09/20 Range/Units 23:33 00:01 04:10 WBC (4.5-11.0) K/uL RBC (4.30-5.90) M/uL Hgb (12.0-15.0) g/dL Hct (40.0-54.0) % MCV (80-98) fL MCH (27-31) pg MCHC (32-36) % Plt Count (150-400) K/uL Neut % (Auto) (36-66) % Lymph % (Auto) (24-44) % [place] % (Auto) (2-6) % Eos % (Auto) (2-4) % Baso % (Auto) (0-1) % Sodium 140 (140-148) mmol/L Potassium 3.6 (3.6-5.2) mmol/L Chloride 102 (100-108) mmol/L Carbon Dioxide 25 (21-32) mmol/L Anion Gap 12.7 (5.0-14.0) mmol/L BUN 17 (7-18) mg/dL Creatinine 0.8 (0.8-1.3) mg/dL Est Cr Clr Drug Dosing 82.36 mL/min Estimated GFR (MDRD) > 60 (>60) Glucose 136 H (74-106) mg/dL Calcium 9.0 (8.5-10.1) mg/dL Magnesium (1.8-2.4) mg/dL Total Bilirubin (0.2-1.0) mg/dL AST (15-37) U/L ALT (12-78) U/L Alkaline Phosphatase (46-116) U/L Troponin I < 0.017 < 0.017 (0.000-0.056) ng/mL Total Protein (6.4-8.2) g/dL Albumin (3.4-5.0) g/dL Globulin (2.3-3.5) g/dL Albumin/Globulin Ratio (1.2-2.2) TSH, Ultra Sensitive 1.893 (0.358-3.740) uIU/mL Med Orders - Current: Current Medications Apixaban (Eliquis) 5 mg PO BID PENDING SALE TO [facility] Last Admin: 01/09/20 09:23 Dose: 5 mg Documented by: Aspirin (Halfprin) 81 mg PO DAILY PENDING [facility] TO [facility] Last Admin: 01/09/20 09:25 Dose: 81 mg Documented by: Cholecalciferol (Vitamin D3) 25 mcg PO DAILY PENDING [facility] TO [facility] Last Admin: 01/09/20 09:25 Dose: 25 mcg Documented by: Cyanocobalamin (Vitamin B12) 1,000 mcg PO DAILY PENDING S[facility] TO [facility] Last Admin: 01/09/20 09:25 Dose: 1,000 mcg Documented by: Fish Oil (Fish Oil) 1 gm PO DAILY PENDING [facility] TO [facility] Last Admin: 01/09/20 09:25 Dose: 1 gm Documented by: Hydrochlorothiazide (Hydrochlorothiazide) 25 mg PO DAILY [facility]END[facility] TO [facility] Last Admin: 01/09/20 09:23 Dose: 25 mg Documented by: Sodium Chloride (Normal Saline) 1,000 mls @ 75 mls/hr IV ASDIRECTED PENDING SALE TO [facility] Diltiazem HCl 100 mg/ Sodium (Chloride) 100 mls @ 5 mls/hr IV TITRATE JEFF; Protocol Metoprolol Succinate (Toprol Xl) 75 mg PO BID [facility]ENDING [facility] TO [facility] Last Admin: 01/09/20 09:21 Dose: 75 mg Documented by: Multivitamins/Minerals (Thera M Plus) 1 tab PO DAILY PENDING [facility] TO [facility] Last Admin: 01/09/20 09:25 Dose: 1 tab Documented by: Nitroglycerin (Nitrostat) 0.4 mg SL ASDIRECTED PRN PRN Reason: Pain Non-Formulary Medication (Diltiazem Hcl [Diltiazem 24hr Er]) 240 mg PO DAILY [facility] TO [facility] Pantoprazole Sodium (Protonix) 40 mg PO ACBREAKFAST PENDING S[facility] TO [facility] Allopurinol 300mg (Tab (Ptom)) 0 each PO DAILY PENDING [facility] TO [facility] Last Admin: 01/09/20 09:24 Dose: 1 each Documented by: Atorvastatin 40mg (Tab (Ptom)) 0 each PO DAILY PENDING [facility] TO [facility] Last Admin: 01/09/20 09:25 Dose: 1 each Documented by: Metformin 1,000mg (Tab (Ptom)) 1,000 each PO BIDMEALS PENDING SALE TO [facility] Pneumococcal Polyvalent Vaccine (Pneumovax 23) 0.5 ml IM .ONCE ONE Stop: 01/09/20 10:31 Potassium Chloride (Potassium Chloride) 10 meq PO BIDMEALS PENDING SALE TO [facility] Last Admin: 01/09/20 08:03 Dose: 10 meq Documented by: Sertraline HCl (Zoloft) 50 mg PO DAILY PENDING [facility] Last Admin: 01/09/20 09:24 Dose: 50 mg Documented by: Terbinafine HCl (Lamisil) 250 mg PO DAILY [facility]END[facility] TO [facility] Last Admin: 01/09/20 09:31 Dose: Not Given Documented by: Discontinued Medications Diltiazem HCl (Diltiazem) 10 mg IVPUSH ONETIME ONE Stop: 01/08/20 23:23 Last Admin: 01/08/20 23:48 Dose: 10 mg Documented by: Sodium Chloride (Normal Saline) 1,000 mls @ 100 mls/hr IV ASDIRECTED PENDING SALE TO [facility] Last Admin: 01/08/20 23:46 Dose: 100 mls/hr Documented by: Diltiazem HCl 100 mg/ Sodium (Chloride) 100 mls @ 5 mls/hr IV TITRATE PENDING SALE TO [facility]; Protocol Last Titration: 01/09/20 08:17 Dose: 10 mg/hr, 10 mls/hr Documented by: Magnesium Oxide (Magnesium Oxide) 400 mg PO ONETIME ONE Stop: 01/09/20 00:00 Last Admin: 01/09/20 00:11 Dose: 400 mg Documented by: Metformin HCl (Glucophage) 1,000 mg PO BIDMEALS PENDING [facility] TO [facility] Last Admin: 01/09/20 08:03 Dose: 1,000 mg Documented by: Pantoprazole Sodium (Protonix) 40 mg PO ACBREAKFAST PENDING SALE TO [facility] Last Admin: 01/09/20 08:02 Dose: 40 mg Documented by: Potassium Chloride (Klor-Con M20) 40 meq PO ONETIME ONE Stop: 01/09/20 09:01 Last Admin: 01/09/20 09:29 Dose: 40 meq Documented by: - Exam General: Alert, Oriented, Cooperative Lungs: Clear to Auscultation, Normal Respiratory Effort. No: Crackles, Rales, Rhonchi, Rub, Stridor, Wheezing Cardiovascular: No Murmurs, Irregular Rhythm. No: Gallops, Rubs Extremities: Normal Inspection, No Pedal Edema Psy/Mental Status: Alert Sepsis Event Note - Evaluation Sepsis Screening Result: No Definite Risk - Focused Exam Vital Signs: Vital Signs Temp Pulse Pulse Resp BP BP Pulse Ox 01/09/20 09:21 93 145/66 H 01/09/20 09:00 93 15 145/66 H 95 01/09/20 08:00 97.7 F 117 H 16 115/76 94 L 01/09/20 07:00 77 17 143/68 H 94 L 01/09/20 06:00 15 151/75 H 96 01/09/20 05:00 15 147/72 H 94 L 01/09/20 04:00 17 156/66 H 95 01/09/20 03:00 16 139/77 96 01/09/20 02:24 97.0 F 19 135/64 96 01/09/20 01:48 82 15 159/82 H 94 L 01/09/20 01:11 87 15 156/68 H 93 L 01/08/20 23:58 94 138/78 01/08/20 23:56 95 140/82 01/08/20 23:54 142/86 H 01/08/20 23:25 97.0 F 120 H 17 130/62 96 01/08/20 23:17 97.0 F 120 H 17 130/62 96 - Problem List & Annotations (1) Atrial fibrillation SNOMED Code(s): 13605179 Code(s): I48.91 - UNSPECIFIED ATRIAL FIBRILLATION Status: Acute Priority: High Current Visit: Yes - Problem List Review Problem List Initiated/Reviewed/Updated: Yes - Plan Plan:: Assessment and Plan ATRIAL FIBRILLATION WITH RAPID VENTRICULAR RESPONSE - rate controlled with Cardizem drip IV. He has a history of [place] with triple bypass surgery. - continue cardizem drip - metoprolol po increase dose to 100mg BID - cardizem po - continue Eloquiz and ASA home dosing for anticoagulation - monitor labs - continuous telemetry - Magnesium and potassium replacement ESSENTIAL HYPERTENSION - currently well managed - continue home medications - monitor BP closely with cardizem drip DIABETES MELLITIS TYPE II - currently managed with oral medications - continue home medications MAINTENANCE ISSUES -DVT prophylaxis; Eloquis and ASA -GI prophylaxis; not indicated -Oseguera catheter; not indicated -Nutrition; consistent carbohydrate diet DISPOSITION-anticipate discharge to home after the hospital stay. Has f/u with cardiology tomorrow.
[2020-01-09] MEDS ORDERED: Metoprolol Succinate 25 MG Tab.ER PO ONE (09:59)
[2020-01-09] MEDS ORDERED: Metoprolol Succinate 50 MG Tab.ER PO ONE (10:15)
[2020-01-09] MEDS: Magnesium Sulfate/Water 2 GM/50 ML BAG IV SCH ×2 (10:26→15:04)
[2020-01-09] MEDS ORDERED: Pneumococcal Polyvalent-23 Vaccine 0.5 ML SDV IM ONE (10:30)
[2020-01-09] MEDS: Sodium Chloride 0.9% 1,000 ML IV SCH (12:22)
[2020-01-09] MEDS ORDERED: Acetaminophen 325 MG Tab PO PRN (14:43)
[2020-01-09] MEDS: METFORMIN 1,000MG TAB (PTOM) PO SCH (16:50)
[2020-01-09] MEDS: Metoprolol Succinate 50 MG Tab.ER **PTOM PO SCH (20:12)
[2020-01-10] MEDS: Sodium Chloride 0.9% 1,000 ML IV SCH (01:18)
[2020-01-10] MEDS ORDERED: Pantoprazole 40 MG Tab.CR (PTOM) PO SCH (07:30)
[2020-01-10] MEDS: METFORMIN 1,000MG TAB (PTOM) PO SCH (08:40)
[2020-01-10] MEDS: POTASSIUM CHLORIDE 10 MEQ PO SCH (08:40)
[2020-01-10] MEDS: ATORVASTATIN 40MG TAB (PTOM) PO SCH (08:42)
[2020-01-10] MEDS: Apixaban 5 MG Tab (PTOM) PO SCH (08:43)
[2020-01-10] MEDS: ALLOPURINOL 300MG TAB (PTOM) PO SCH (08:44)
[2020-01-10] MEDS: Metoprolol Succinate 50 MG Tab.ER **PTOM PO SCH (08:46)
[2020-01-10] MEDS: Hydrochlorothiazide 25 MG Tab (PTOM) PO SCH (08:48)
[2020-01-10] MEDS: Cyanocobalamin (Vitamin B12) 1,000 MCG Tab PO SCH (08:52)
[2020-01-10] MEDS: Terbinafine 250 MG Tab PO SCH (08:53)
[2020-01-10] MEDS: Multivitamins with Iron/Calcium/Folic Acid/Minerals Tab PO SCH (08:54)
[2020-01-10] MEDS: Cholecalciferol (Vitamin D3) 25 MCG Tab PO SCH (08:55)
[2020-01-10] MEDS: SERTRALINE 50 MG PO SCH (08:57)
[2020-01-10] MEDS ORDERED: DILTIAZEM 240 MG PO SCH (09:00)
[2020-01-10 09:04] VITALS: BP 121/55; PULSE 74
--- NOTE | 2020-01-10 09:56 | PCM.DCSUM1 ---
Discharge Summary - Hospital Course Brief History: 79-year-old male with history of paroxysmal atrial fibrillation, remote coronary artery disease who presented with palpitations. Work-up in the emergency room revealed evidence for atrial fibrillation with a rapid ventricular response. He was admitted to the intensive care unit for further management. Diagnosis: Stroke: No - Discharge Data Discharge Date: 01/10/20 Discharge Disposition: Home, Self-Care 01 Condition: Good - Referral to Home Health Primary Care Physician: Sourav Lorenzo MD - Discharge Diagnosis/Problem(s) (1) Paroxysmal atrial fibrillation with rapid ventricular response SNOMED Code(s): 863948578, [id number] ICD Code: I48.0 - PAROXYSMAL ATRIAL FIBRILLATION Status: Acute Current Visit: Yes (2) Coronary arteriosclerosis, CAD SNOMED Code(s): 48172175 ICD Code: I25.10 - ATHSCL HEART DISEASE OF [place] CORONARY ARTERY W/O ANG PCTRS Status: Chronic Current Visit: No - Patient Summary/Data Hospital Course: Cash presented to the emergency room with palpitations and shortness of br eath. Work-up in the emergency room revealed paroxysmal atrial fibrillation with a rapid ventricular response. Laboratory studies were reassuring. He was given a bolus of diltiazem and started on a continuous infusion and admitted to the intensive care unit for further management. His potassium was borderline low and magnesium was slightly low so we did supplement these electrolytes. He remained on the continuous diltiazem infusion for about 30 hours. He did convert to a sinus rhythm. He did have somewhat frequent PACs but is back in a sinus rhythm. We did increase his metoprolol from 75 twice a day up to 100 twice a day. He is still on his usual dose of diltiazem. He is feeling well. The diltiazem infusion was stopped. The plan is for him to go home today. 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 I did send a new prescription for the increased dose of diltiazem. I do recommend that he has a discussion with his mixing and dispensing supervisor about the possibility of an ablation procedure for his atrial fibrillation which seems to have somewhat frequent exacerbations. - Patient Instructions Diet: Heart Healthy Diet Activity: As Tolerated Driving: May Drive Today Showering/Bathing: May Shower Other/Special Instructions: 1. You were in the hospital for management of paroxysmal atrial fibrillation with a rapid ventricular response. Your heart has returned to a normal sinus rhythm utilizing an infusion of diltiazem. I recommend that we increase your metoprolol slightly and continue your current dose of diltiazem. I have sent a new prescription for metoprolol to succinate 100 mg which you should take twice daily. I think it is worth a discussion with your mixing and dispensing supervisor about consideration for an ablation. 2. Follow up with your mixing and dispensing supervisor as scheduled today and your primary care in about 1 week. - Discharge Plan *PRESCRIPTION DRUG MONITORING PROGRAM REVIEWED*: Not Applicable *COPY OF PRESCRIPTION DRUG MONITORING REPORT IN PATIENT GUERO: Not Applicable Prescriptions/Med Rec: Metoprolol Succinate 100 mg PO BID #180 tab.er.24h Home Medications: Home Meds Aspirin [[place] Aspirin] 81 mg PO DAILY 03/25/13 [History] Indomethacin [Indocin] 25 mg PO TIDMEALS PRN 03/25/13 [History] Potassium Chloride 10 meq PO BID 03/25/13 [History] metFORMIN [Glucophage] 1,000 mg PO BID 03/25/13 [History] Nitroglycerin [Nitrostat] 0.4 mg SL ASDIRECTED PRN 01/26/15 [History] Sertraline [Zoloft] 50 mg PO DAILY 01/26/15 [History] Terbinafine HCl [Terbinafine] 250 mg PO DAILY 09/19/17 [History] Apixaban [Eliquis] 5 mg PO BID 01/09/20 [History] Cholecalciferol (Vitamin D3) [Vitamin D3] 1,000 unit PO DAILY 01/09/20 [History] Cyanocobalamin (Vitamin B12) [Vitamin B12] 1,000 mcg PO DAILY 01/09/20 [History] Multivitamin [Multi-Day Vitamins] 1 tab PO DAILY 01/09/20 [History] [place]-3/DHA/Epa/Fish Oil [[place]-3 Fish Oil 1,000 MG Sfgl] 1,000 mg PO DAILY 01/09/20 [History] Pantoprazole Sodium [Protonix] 40 mg PO DAILY 01/09/20 [History] allopurinoL [Zyloprim] 300 mg PO DAILY 01/09/20 [History] atorvaSTATin [Lipitor] 40 mg PO DAILY 01/09/20 [History] dilTIAZem HCL [Diltiazem 24Hr ER] 240 mg PO DAILY 01/09/20 [History] hydroCHLOROthiazide [Hydrochlorothiazide] 25 mg PO DAILY 01/09/20 [History] Metoprolol Succinate 100 mg PO BID #180 tab.er.24h 01/10/20 [Rx] Oxygen Therapy Mode: Room Air Patient Handouts: Atrial Fibrillation, Metoprolol extended-release tablets Referrals: Sourav Lorenzo MD [Primary Care Provider] - (1 week -follow-up hospital stay for paroxysmal atrial fibrillation) - Discharge Summary/Plan Comment DC Time >30 min.: No - Patient Data Vitals - Most Recent: Last Vital Signs Temp 36.3 C 01/10/20 09:00 Pulse 74 01/10/20 09:00 Resp 15 01/10/20 09:00 BP 121/55 L 01/10/20 09:00 Pulse Ox 94 L 01/10/20 09:00 Weight - Most Recent: 106.231 kg I&O - Last 24 hours: Intake & Output 01/09/20 01/10/20 01/10/20 22:59 06:59 14:59 Intake Total 1552 Balance 1552 Med Orders - Current: Current Medications Acetaminophen (Tylenol) 650 mg PO Q4H PRN PRN Reason: Pain/Fever Last Admin: 01/09/20 15:03 Dose: 650 mg Documented by: Apixaban (Eliquis) 5 mg PO BID [facility] Last Admin: 01/10/20 08:43 Dose: 5 mg Documented by: Aspirin (Halfprin) 81 mg PO DAILY [facility] Last Admin: 01/09/20 09:25 Dose: 81 mg Documented by: Cholecalciferol (Vitamin D3) 25 mcg PO DAILY [facility] Last Admin: 01/10/20 08:55 Dose: 25 mcg Documented by: Cyanocobalamin (Vitamin B12) 1,000 mcg PO DAILY [facility] Last Admin: 01/10/20 08:52 Dose: 1,000 mcg Documented by: Fish Oil (Fish Oil) 1 gm PO DAILY [facility] Last Admin: 01/09/20 09:25 Dose: 1 gm Documented by: Hydrochlorothiazide (Hydrochlorothiazide) 25 mg PO DAILY [facility] Last Admin: 01/10/20 08:48 Dose: 25 mg Documented by: Sodium Chloride (Normal Saline) 1,000 mls @ 75 mls/hr IV ASDIRECTED [facility] Last Admin: 01/10/20 01:18 Dose: 75 mls/hr Documented by: Diltiazem HCl 100 mg/ Sodium (Chloride) 100 mls @ 5 mls/hr IV TITRATE [facility]; Protocol Last Admin: 01/09/20 15:30 Dose: 5 mg/hr, 5 mls/hr Documented by: Metoprolol Succinate (Toprol Xl) 100 mg PO BID [facility] Last Admin: 01/10/20 08:46 Dose: 100 mg Documented by: Multivitamins/Minerals (Thera M Plus) 1 tab PO DAILY [facility] Last Admin: 01/10/20 08:54 Dose: 1 tab Documented by: Nitroglycerin (Nitrostat) 0.4 mg SL ASDIRECTED PRN PRN Reason: Pain Pantoprazole Sodium (Protonix) 40 mg PO ACBREAKFAST [facility] Last Admin: 01/10/20 07:50 Dose: 40 mg Documented by: Diltiazem 240mg Cd ( (Ptom)) 0 each PO DAILY [facility] Last Admin: 01/10/20 08:57 Dose: 1 each Documented by: Allopurinol 300mg (Tab (Ptom)) 0 each PO DAILY [facility] Last Admin: 01/10/20 08:44 Dose: 1 each Documented by: Atorvastatin 40mg (Tab (Ptom)) 0 each PO DAILY [facility] Last Admin: 01/10/20 08:42 Dose: 1 each Documented by: Metformin 1,000mg (Tab (Ptom)) 1,000 each PO BIDMEALS [facility] Last Admin: 01/10/20 08:40 Dose: 1,000 each Documented by: Potassium Chloride (Potassium Chloride) 10 meq PO BIDMEALS [facility] Last Admin: 01/10/20 08:40 Dose: 10 meq Documented by: Sertraline HCl (Zoloft) 50 mg PO DAILY [facility] Last Admin: 01/10/20 08:57 Dose: 50 mg Documented by: Terbinafine HCl (Lamisil) 250 mg PO DAILY [facility] Last Admin: 01/10/20 08:53 Dose: Not Given Documented by: Discontinued Medications Diltiazem HCl (Diltiazem) 10 mg IVPUSH ONETIME ONE Stop: 01/08/20 23:23 Last Admin: 01/08/20 23:48 Dose: 10 mg Documented by: Sodium Chloride (Normal Saline) 1,000 mls @ 100 mls/hr IV ASDIRECTED [facility] Last Admin: 01/08/20 23:46 Dose: 100 mls/hr Documented by: Diltiazem HCl 100 mg/ Sodium (Chloride) 100 mls @ 5 mls/hr IV TITRATE [facility]; Protocol Last Titration: 01/09/20 09:45 Dose: 5 mg/hr, 5 mls/hr Documented by: Magnesium Sulfate (Magnesium Sulfate In Water Premix) 2 gm in 50 mls @ 12.5 mls/hr IV Q6H [facility] Stop: 01/09/20 19:59 Last Admin: 01/09/20 15:04 Dose: 12.5 mls/hr Documented by: Magnesium Oxide (Magnesium Oxide) 400 mg PO ONETIME ONE Stop: 01/09/20 00:00 Last Admin: 01/09/20 00:11 Dose: 400 mg Documented by: Metformin HCl (Glucophage) 1,000 mg PO BIDMEALS [facility] Last Admin: 01/09/20 08:03 Dose: 1,000 mg Documented by: Metoprolol Succinate (Toprol Xl) 75 mg PO BID [facility] Last Admin: 01/09/20 09:21 Dose: 75 mg Documented by: Metoprolol Succinate (Toprol Xl) 25 mg PO ONETIME ONE Stop: 01/09/20 10:16 Last Admin: 01/09/20 10:23 Dose: 25 mg Documented by: Pantoprazole Sodium (Protonix) 40 mg PO ACBREAKFAST [facility] Last Admin: 01/09/20 08:02 Dose: 40 mg Documented by: Pneumococcal Polyvalent Vaccine (Pneumovax 23) 0.5 ml IM .ONCE ONE Stop: 01/09/20 10:31 Last Admin: 01/09/20 10:26 Dose: 0.5 ml Documented by: Potassium Chloride (Klor-Con M20) 40 meq PO ONETIME ONE Stop: 01/09/20 09:01 Last Admin: 01/09/20 09:29 Dose: 40 meq Documented by:
== END 2020-01-10 10:40 | disposition home or self-care (01) ==
LOC: JP.ED 22:58 → JP.ICU 01-09 01:22
PROVIDERS: ADMIT Family Medicine; ATTEND Internal Medicine
DX: I48.0 Paroxysmal atrial fibrillation (principal); I25.10 Atherosclerotic heart disease of native coronary artery without angina pectoris; E11.9 Type 2 diabetes mellitus without complications; G43.909 Migraine, unspecified, not intractable, without status migrainosus; I10 Essential (primary) hypertension; Z87.891 Personal history of nicotine dependence; Z88.8 Allergy status to other drugs, medicaments and biological substances; Z23 Encounter for immunization; Z79.82 Long term (current) use of aspirin; Z79.899 Other long term (current) drug therapy
CPT/HCPCS: 36415; 80048; 80053; 83735; 84443; 84484; 85025; 90732; 93005; 93010; A9270; G0009; J3475; J3490; J7030; J7050

== ENCOUNTER 2020-06-20 07:51 | Emergency (ER) | payer MEDICARE ==
--- NOTE | 2020-06-20 08:27 | EDM.PDOC ---
ED HPI GENERAL MEDICAL PROBLEM - General Chief Complaint: Chest Pain Stated Complaint: TIGHTNESS IN CHEST AND SOB Time Seen by Provider: 06/20/20 08:15 Source of Information: Reports: Patient, Family History Limitations: Reports: No Limitations - History of Present Illness INITIAL COMMENTS - FREE TEXT/NARRATIVE: 79-year-old male with a history of coronary artery disease, got a second Covid vaccine 2 days ago, and last night while he was active he developed 20 minutes of chest pressure and shortness of breath. No diaphoresis or pain. It resolved spontaneously, but this morning at about 6:00 shortly after waking up while at rest he developed a second 10 to 15-minute stretch of pressure in his chest with shortness of breath. He thought he should come in and get it checked. On arrival he has no symptoms. Onset: Sudden Duration: Minutes: (10 to 20 minutes) Location: Reports: Chest Associated Symptoms: Reports: Chest Pain (Pressure), Shortness of Breath. Denies: Loss of Appetite, Malaise, Nausea/Vomiting, Weakness Chest Pain Score (Numeric/FACES): 5 - Related Data Allergies Allergy/AdvReac Type Severity Reaction Status Date / Time carbamazepine Allergy Rash Verified 06/20/20 08:12 ramipril Allergy Swollen Verified 06/20/20 08:12 Tongue valsartan Allergy Swollen Verified 06/20/20 08:12 Tongue Home Meds: Home Meds Aspirin [[place] Aspirin] 81 mg PO BEDTIME 03/25/13 [History] Indomethacin [Indocin] 25 mg PO TIDMEALS PRN 03/25/13 [History] Potassium Chloride 10 meq PO BID 03/25/13 [History] metFORMIN [Glucophage] 1,000 mg PO BID 03/25/13 [History] Nitroglycerin [Nitrostat] 0.4 mg SL ASDIRECTED PRN 01/26/15 [History] Sertraline [Zoloft] 50 mg PO DAILY 01/26/15 [History] Terbinafine HCl [Terbinafine] 250 mg PO DAILY 09/19/17 [History] Apixaban [Eliquis] 5 mg PO BID 01/09/20 [History] Cholecalciferol (Vitamin D3) [Vitamin D3] 1,000 unit PO DAILY 01/09/20 [History] Cyanocobalamin (Vitamin B12) [Vitamin B12] 1,000 mcg PO BEDTIME 01/09/20 [History] Multivitamin [Multi-Day Vitamins] 1 tab PO DAILY 01/09/20 [History] [place]-3/DHA/Epa/Fish Oil [[place]-3 Fish Oil 1,000 MG Sfgl] 1,000 mg PO DAILY 01/09/20 [History] Pantoprazole Sodium [Protonix] 40 mg PO DAILY 01/09/20 [History] allopurinoL [Zyloprim] 300 mg PO DAILY 01/09/20 [History] atorvaSTATin [Lipitor] 40 mg PO DAILY 01/09/20 [History] hydroCHLOROthiazide [Hydrochlorothiazide] 25 mg PO DAILY 01/09/20 [History] Amiodarone [Cordarone] 200 mg PO DAILY 06/20/20 [History] Fluticasone Propionate [Flonase] 2 spray TOP DAILY 06/20/20 [History] Metoprolol Succinate 50 mg PO DAILY 06/20/20 [History] Spironolactone [Aldactone] 50 mg PO DAILY 06/20/20 [History] Past Medical History HEENT History: Reports: Hard of Hearing, Impaired Vision, Other (See Below) Other HEENT History: bilateral hearing aids. glasses Cardiovascular History: Reports: Afib, Aneurysm, Bypass, Hypertension, [place] Musculoskeletal History: Reports: Arthritis Neurological History: Reports: Headaches, Chronic, Migraines Psychiatric History: Reports: Anxiety, Depression Endocrine/Metabolic History: Reports: Diabetes, Type II Hematologic History: Reports: Anticoagulation Therapy - Infectious Disease History Infectious Disease History: Reports: Chicken Pox, Measles, Mumps - Past Surgical History HEENT Surgical History: Reports: Tonsillectomy Cardiovascular Surgical History: Reports: Coronary Artery Bypass, Coronary Artery Stent, Other (See Below) Other Cardiovascular Surgeries/Procedures: electric cardioversion GI Surgical History: Reports: Colonoscopy Neurological Surgical History: Reports: Spinal Fusion Musculoskeletal Surgical History: Reports: Shoulder Surgery, Other (See Below) Other Musculoskeletal Surgeries/Procedures:: neck fusion Social & Family History - Family History Family Medical History: No Pertinent Family History - Caffeine Use Caffeine Use: Reports: Soda ED ROS GENERAL - Review of Systems Review Of Systems: See Below Constitutional: Denies: Fever, Chills, Malaise HEENT: Reports: No Symptoms Respiratory: Reports: Shortness of Breath Cardiovascular: Reports: Chest Pain. Denies: Palpitations GI/Abdominal: Denies: Nausea, Vomiting Skin: Denies: Diaphoresis Neurological: Reports: No Symptoms Psychiatric: Reports: No Symptoms ED EXAM, GENERAL - Physical Exam Exam: See Below Exam Limited By: No Limitations General Appearance: Alert, No Apparent Distress Eye Exam: Bilateral Eye: Normal Inspection Head: Atraumatic Respiratory/Chest: No Respiratory Distress, Lungs Clear Cardiovascular: Regular Rate, Rhythm, Bradycardia GI/Abdominal: Soft, Non-Tender Extremities: Normal Inspection. No: Pedal Edema Neurological: Alert, Oriented, No Motor/Sensory Deficits Psychiatric: Normal Affect, Normal Mood Skin Exam: Warm, Dry #1 Interpretation EKG Date: 06/20/20 Rhythm: NSR Rate (Beats/Min): 58 QRS: LBBB ST-T: Normal Course - Vital Signs Last Recorded V/S: Last Vital Signs Temp 97.5 F 06/20/20 08:06 Pulse 51 L 06/20/20 08:33 Resp 15 06/20/20 08:33 BP 139/54 L 06/20/20 08:33 Pulse Ox 97 06/20/20 08:33 - Orders/Labs/Meds Orders: Active Orders 24 hr Category Date Time Status EKG 12 Lead [EK] Routine Ther 06/20/20 08:08 Ordered Labs: Laboratory Tests 06/20/20 Range/Units 08:34 Troponin I < 0.017 (0.000-0.056) ng/mL - Re-Assessments/Exams Free Text/Narrative Re-Assessment/Exam: 06/20/20 08:56 Patient remained comfortable while waiting troponin result. Interestingly when talking about his history, he had an angiogram 5 years ago after he developed chest pains after an influenza shot. It was normal. He also had a second echocardiogram just a year ago which was still good. 06/20/20 09:07 Troponin returned 0. No need for hospitalization or further work-up at this time, increase activity as tolerated and return anytime if symptoms recur and are persistent or if he develops other concerns. Departure - Departure Time of Disposition: 09:14 Disposition: Home, Self-Care 01 Clinical Impression: Chest pain, atypical - Discharge Information Instructions: Nonspecific Chest Pain, Adult, [id number] Referrals: Sourav Lorenzo MD [Primary Care Provider] - Forms: ED Department Discharge Care Plan Goals: Increase activity as tolerated, continue your medications and return anytime if symptoms recur and are persistent or you develop other concerns. Sepsis Event Note (ED) - Evaluation Sepsis Screening Result: No Definite Risk - Focused Exam Vital Signs: Vital Signs Temp Pulse Resp BP Pulse Ox 06/20/20 08:33 51 L 15 139/54 L 97 06/20/20 08:06 97.5 F 50 L 20 148/55 H 99 - My Orders Last 24 Hours: My Active Orders 06/20/20 08:08 EKG 12 Lead [EK] Routine - Assessment/Plan Last 24 Hours: My Active Orders 06/20/20 08:08 EKG 12 Lead [EK] Routine
[2020-06-20 08:48] VITALS: BP 139/54; PULSE 51
== END 2020-06-20 09:21 | disposition home or self-care (01) ==
LOC: JP.ED 07:51
DX: R07.89 Other chest pain (principal); R06.02 Shortness of breath; I44.7 Left bundle-branch block, unspecified; I48.91 Unspecified atrial fibrillation; I10 Essential (primary) hypertension; I25.2 Old myocardial infarction; M19.90 Unspecified osteoarthritis, unspecified site; E11.9 Type 2 diabetes mellitus without complications; Z88.8 Allergy status to other drugs, medicaments and biological substances; Z79.01 Long term (current) use of anticoagulants; Z79.82 Long term (current) use of aspirin; Z79.84 Long term (current) use of oral hypoglycemic drugs; Z79.899 Other long term (current) drug therapy
CPT/HCPCS: 36415; 84484; 93005; 99285-25

== ENCOUNTER 2020-09-02 15:05 | Emergency (ER) | payer MEDICARE ==
[2020-09-02 15:28] VITALS: BP 159/86; PULSE 112
--- NOTE | 2020-09-02 15:35 | EDM.PDOC ---
ED HPI GENERAL MEDICAL PROBLEM - General Chief Complaint: Cardiovascular Problem Stated Complaint: AFIB Time Seen by Provider: 09/02/20 15:30 Source of Information: Reports: Patient, Old Records, RN Notes Reviewed History Limitations: Reports: No Limitations - History of Present Illness INITIAL COMMENTS - FREE TEXT/NARRATIVE: 79-year-old gentleman presents emergency department day complaint of palpitations, he has a known history of atrial fibrillation has had rapid ventricular response in the past states over the last couple days it has been moving faster than usual heart rates varying around 115 had some chest pain as well at this time he is chest pain-free palpitations are tolerable at this time - Related Data Allergies Allergy/AdvReac Type Severity Reaction Status Date / Time carbamazepine Allergy Rash Verified 06/20/20 08:12 ramipril Allergy Swollen Verified 06/20/20 08:12 Tongue valsartan Allergy Swollen Verified 06/20/20 08:12 Tongue Home Meds: Home Meds Aspirin [Iron Aspirin] 81 mg PO BEDTIME 03/25/13 [History] Indomethacin [Indocin] 25 mg PO TIDMEALS PRN 03/25/13 [History] Potassium Chloride 10 meq PO BID 03/25/13 [History] metFORMIN [Glucophage] 1,000 mg PO BID 03/25/13 [History] Nitroglycerin [Nitrostat] 0.4 mg SL ASDIRECTED PRN 01/26/15 [History] Sertraline [Zoloft] 50 mg PO DAILY 01/26/15 [History] Terbinafine HCl [Terbinafine] 250 mg PO DAILY 09/19/17 [History] Apixaban [Eliquis] 5 mg PO BID 01/09/20 [History] Cholecalciferol (Vitamin D3) [Vitamin D3] 1,000 unit PO DAILY 01/09/20 [History] Cyanocobalamin (Vitamin B12) [Vitamin B12] 1,000 mcg PO BEDTIME 01/09/20 [History] Multivitamin [Multi-Day Vitamins] 1 tab PO DAILY 01/09/20 [History] [place]-3/DHA/Epa/Fish Oil [[place]-3 Fish Oil 1,000 MG Sfgl] 1,000 mg PO DAILY 01/09/20 [History] Pantoprazole Sodium [Protonix] 40 mg PO DAILY 01/09/20 [History] allopurinoL [Zyloprim] 300 mg PO DAILY 01/09/20 [History] atorvaSTATin [Lipitor] 40 mg PO DAILY 01/09/20 [History] hydroCHLOROthiazide [Hydrochlorothiazide] 25 mg PO DAILY 01/09/20 [History] Amiodarone [Cordarone] 200 mg PO DAILY 06/20/20 [History] Metoprolol Succinate 50 mg PO DAILY 06/20/20 [History] Past Medical History HEENT History: Reports: Hard of Hearing, Impaired Vision, Other (See Below) Other HEENT History: bilateral hearing aids. glasses Cardiovascular History: Reports: Afib, Aneurysm, Bypass, CAD, Hypertension, [place] Musculoskeletal History: Reports: Arthritis Neurological History: Reports: Headaches, Chronic, Migraines Psychiatric History: Reports: Anxiety, Depression Endocrine/Metabolic History: Reports: Diabetes, Type II Hematologic History: Reports: Anticoagulation Therapy - Infectious Disease History Infectious Disease History: Reports: Chicken Pox, Measles, Mumps - Past Surgical History HEENT Surgical History: Reports: Tonsillectomy Cardiovascular Surgical History: Reports: Coronary Artery Bypass, Coronary Artery Stent, Other (See Below) Other Cardiovascular Surgeries/Procedures: electric cardioversion GI Surgical History: Reports: Colonoscopy Neurological Surgical History: Reports: Spinal Fusion Musculoskeletal Surgical History: Reports: Shoulder Surgery, Other (See Below) Other Musculoskeletal Surgeries/Procedures:: neck fusion Social & Family History - Family History Family Medical History: No Pertinent Family History - Caffeine Use Caffeine Use: Reports: Soda ED ROS GENERAL - Review of Systems Review Of Systems: See Below Constitutional: Reports: No Symptoms HEENT: Reports: No Symptoms Respiratory: Reports: No Symptoms Cardiovascular: Reports: Palpitations GI/Abdominal: Reports: No Symptoms ED EXAM, GENERAL - Physical Exam Exam: See Below Exam Limited By: No Limitations General Appearance: Alert, WD/WN, No Apparent Distress Respiratory/Chest: No Respiratory Distress, Lungs Clear, Normal Breath Sounds, N o Accessory Muscle Use, Chest Non-Tender Cardiovascular: No Murmur, Tachycardia GI/Abdominal: Soft, Non-Tender #1 Interpretation EKG Date: 09/02/20 Time: 15:41 Rhythm: A-Fib Parkin: LAD-Left Parkin Deviation P-Wave: Absent QRS: LBBB ST-T: Normal QT: Normal Comparison: Change From Previous EKG Course - Vital Signs Last Recorded V/S: Last Vital Signs Temp 99.0 F 09/02/20 15:49 Pulse 112 H 09/02/20 15:49 Resp 21 H 09/02/20 15:49 BP 159/86 H 09/02/20 15:49 Pulse Ox 97 09/02/20 15:49 - Orders/Labs/Meds Orders: Active Orders 24 hr Category Date Time Status Cardiac Monitoring [RC] .As Directed Care 09/02/20 15:33 Active EKG Documentation Completion [RC] ASDIRECTED Care 09/02/20 15:33 Active EKG 12 Lead [EK] Stat Ther 09/02/20 15:33 Ordered Labs: Laboratory Tests 09/02/20 09/02/20 09/02/20 Range/Units 15:48 15:48 15:50 WBC 9.9 (4.5-11.0) K/uL RBC 4.14 L (4.30-5.90) M/uL Hgb 12.3 (12.0-15.0) g/dL Hct 37.8 L (40.0-54.0) % MCV 91 (80-98) fL MCH 30 (27-31) pg MCHC 33 (32-36) % Plt Count 115 L (150-400) K/uL Neut % (Auto) 47.6 (36-66) % Lymph % (Auto) 22.7 L (24-44) % Branch % (Auto) 28.5 H (2-6) % Eos % (Auto) 0.3 L (2-4) % Baso % (Auto) 0.9 (0-1) % Sodium 142 (140-148) mmol/L Potassium 4.0 (3.6-5.2) mmol/L Chloride 105 (100-108) mmol/L Carbon Dioxide 25 (21-32) mmol/L Anion Gap 12.3 (5.0-14.0) mmol/L BUN 14 (7-18) mg/dL Creatinine 1.0 (0.8-1.3) mg/dL Est Cr Clr Drug Dosing 67.90 mL/min Estimated GFR (MDRD) > 60 (>60) Glucose 163 H (74-106) mg/dL Calcium 8.7 (8.5-10.1) mg/dL Magnesium 1.7 L (1.8-2.4) mg/dL Troponin I < 0.017 (0.000-0.056) ng/mL Departure - Departure Time of Disposition: 16:22 Disposition: Home, Self-Care 01 Condition: Fair Clinical Impression: Atrial fibrillation Qualifiers: Atrial fibrillation type: permanent Qualified Code(s): I48.21 - Permanent atrial fibrillation Instructions: Atrial Fibrillation Referrals: Sourav Lorenzo MD [Primary Care Provider] - Forms: ED Department Discharge Additional Instructions: Take an additional metoprolol 25 mg today and then start 75 mg once a day tomorrow please contact your salesperson [employer] for further evaluation try and get in within the next 3 to 5 days call return to the emergency department worsening of symptoms Sepsis Event Note (ED) - Focused Exam Vital Signs: Vital Signs Temp Pulse Resp BP Pulse Ox 09/02/20 15:49 99.0 F 112 H 21 H 159/86 H 97 09/02/20 15:20 99.0 F 112 H 21 H 159/86 H 97 - My Orders Last 24 Hours: My Active Orders 09/02/20 15:33 Cardiac Monitoring [RC] .As Directed EKG Documentation Completion [RC] ASDIRECTED EKG 12 Lead [EK] Stat - Assessment/Plan Last 24 Hours: My Active Orders 09/02/20 15:33 Cardiac Monitoring [RC] .As Directed EKG Documentation Completion [RC] ASDIRECTED EKG 12 Lead [EK] Stat Plan: Assessment Acuity = acute Site and laterality = atrial fibrillation suboptimal control Etiology = unknown Manifestations = palpitations Location of injury = Home Lab values = CBC BMP unremarkable magnesium slightly low at 1.7 normal is 1.8 EKG demonstrates atrial fibrillation troponin is negative Plan I did discuss options with him plan is we will increase his metoprolol from 50 mg once a day to 75 mg once a day he has been on this in the past he does have additional metoprolol at home he will follow-up with his salesperson [employer] next week This note was dictated using [employer] voice recognition software please call with any questions on syntax or grammar.
== END 2020-09-02 16:39 | disposition home or self-care (01) ==
LOC: JP.ED 15:05
DX: I48.21 Permanent atrial fibrillation (principal); I25.10 Atherosclerotic heart disease of native coronary artery without angina pectoris; I10 Essential (primary) hypertension; I25.2 Old myocardial infarction; E11.9 Type 2 diabetes mellitus without complications; Z88.8 Allergy status to other drugs, medicaments and biological substances; Z79.82 Long term (current) use of aspirin; Z79.01 Long term (current) use of anticoagulants; Z79.899 Other long term (current) drug therapy; Z95.1 Presence of aortocoronary bypass graft
CPT/HCPCS: 36415; 80048; 83735; 84484; 85025; 93005; 99285-25

== ENCOUNTER 2021-06-16 14:22 | Emergency (ER) | payer MEDICARE ==
[2021-06-16] MEDS ORDERED: Lidocaine 1% 5 ML VIAL INJECT ONE (14:25)
[2021-06-16 14:30] VITALS: BP 157/58; PULSE 71
[2021-06-16] MEDS ORDERED: Silver Nitrate Applicator Each TOP ONE (14:35)
== END 2021-06-16 15:08 | disposition home or self-care (01) ==
LOC: JP.ED 14:22
DX: L76.22 Postprocedural hemorrhage of skin and subcutaneous tissue following other procedure (principal); I48.91 Unspecified atrial fibrillation; I25.10 Atherosclerotic heart disease of native coronary artery without angina pectoris; I10 Essential (primary) hypertension; I25.2 Old myocardial infarction; E11.9 Type 2 diabetes mellitus without complications; Z88.8 Allergy status to other drugs, medicaments and biological substances; Z79.82 Long term (current) use of aspirin; Z79.01 Long term (current) use of anticoagulants; Z79.899 Other long term (current) drug therapy
CPT/HCPCS: 99283

== ENCOUNTER 2021-09-16 14:10 | Emergency (ER) | payer OTHER, MEDICARE ==
[2021-09-16 14:20] VITALS: BP 126/54; PULSE 58
[2021-09-16 16:13] LABS: TROPONIN I HIGH SENSITIVITY 11.9 pg/mL (<=60.3)
== END 2021-09-16 16:38 | disposition home or self-care (01) ==
LOC: JP.ED 14:10
DX: I25.10 Atherosclerotic heart disease of native coronary artery without angina pectoris (principal); R00.2 Palpitations; D64.9 Anemia, unspecified; D72.829 Elevated white blood cell count, unspecified; I48.0 Paroxysmal atrial fibrillation; E11.9 Type 2 diabetes mellitus without complications; Z79.01 Long term (current) use of anticoagulants; Z79.84 Long term (current) use of oral hypoglycemic drugs; Z88.8 Allergy status to other drugs, medicaments and biological substances; Z79.899 Other long term (current) drug therapy
CPT/HCPCS: 36415; 80048; 83735; 84443; 84484; 85025; 93005; 99285

== ENCOUNTER 2021-12-10 20:50 | Emergency (ER) | payer MEDICARE, OTHER ==
[2021-12-10] MEDS ORDERED: Sodium Chloride 0.9% 50 ML IV STA (22:42)
[2021-12-10] MEDS ORDERED: Iopamidol 612 MG/ML 100 ML Bottle IV STA (22:42)
[2021-12-11 00:44] VITALS: BP 156/74; PULSE 76
== END 2021-12-11 00:44 | disposition home or self-care (01) ==
LOC: JP.ED 20:50
DX: S20.212A Contusion of left front wall of thorax, initial encounter (principal); I25.10 Atherosclerotic heart disease of native coronary artery without angina pectoris; I10 Essential (primary) hypertension; E11.9 Type 2 diabetes mellitus without complications; Z88.8 Allergy status to other drugs, medicaments and biological substances; Z79.82 Long term (current) use of aspirin; Z79.84 Long term (current) use of oral hypoglycemic drugs; Z79.899 Other long term (current) drug therapy; Z79.01 Long term (current) use of anticoagulants; W10.9XXA Fall (on) (from) unspecified stairs and steps, initial encounter
CPT/HCPCS: 36415; 71260; 74160; 80048; 99284; J3490; Q9967

== ENCOUNTER 2022-01-09 20:53 | Emergency (ER) | payer MEDICARE ==
[2022-01-09] MEDS ORDERED: Sodium Chloride 0.9% 10 ML Syringe FLUSH PRN (21:17)
[2022-01-09] MEDS ORDERED: Aspirin 81 MG Tab.Chew PO ONE (21:19)
[2022-01-09 22:00] LABS: ESTIMATED GFR 68 mL/min (>60); TROPONIN I HIGH SENSITIVITY 10.7 pg/mL (<=60.3)
[2022-01-09 22:51] VITALS: BP 150/52; PULSE 80
== END 2022-01-09 23:22 | disposition home or self-care (01) ==
LOC: JP.ED 20:53
DX: R07.89 Other chest pain (principal); I48.91 Unspecified atrial fibrillation; I25.10 Atherosclerotic heart disease of native coronary artery without angina pectoris; I10 Essential (primary) hypertension; I25.2 Old myocardial infarction; E11.9 Type 2 diabetes mellitus without complications; M19.90 Unspecified osteoarthritis, unspecified site; Z88.8 Allergy status to other drugs, medicaments and biological substances; Z79.82 Long term (current) use of aspirin; Z79.01 Long term (current) use of anticoagulants; Z79.84 Long term (current) use of oral hypoglycemic drugs; Z79.899 Other long term (current) drug therapy; Z20.822 Contact with and (suspected) exposure to COVID-19
CPT/HCPCS: 36415; 71045; 80053; 82947; 84484; 85025; 93005; 99285; A9270; J3490; U0002

== ENCOUNTER 2022-02-02 10:08 | Emergency (ER) | payer MEDICARE ==
[2022-02-02 11:12] LABS: CORONAVIRUS COVID-19 NAA POSITIVE (NEGATIVE)
[2022-02-02] MEDS ORDERED: Dexamethasone 4 MG/ML SDV PO ONE (11:31)
[2022-02-02 11:32] VITALS: BP 133/68; PULSE 88
== END 2022-02-02 11:48 | disposition home or self-care (01) ==
LOC: JP.ED 10:08
DX: U07.1 COVID-19 (principal); I48.91 Unspecified atrial fibrillation; I25.10 Atherosclerotic heart disease of native coronary artery without angina pectoris; I10 Essential (primary) hypertension; I25.2 Old myocardial infarction; E11.9 Type 2 diabetes mellitus without complications; Z88.8 Allergy status to other drugs, medicaments and biological substances; Z79.82 Long term (current) use of aspirin; Z79.01 Long term (current) use of anticoagulants; Z87.891 Personal history of nicotine dependence; Z79.899 Other long term (current) drug therapy
CPT/HCPCS: 0241U; 99284; J8540

== ENCOUNTER 2022-07-11 14:00 | Emergency (ER) | payer MEDICARE ==
[2022-07-11] MEDS ORDERED: Sodium Chloride 0.9% 1,000 ML IV ONE (14:21)
[2022-07-11] MEDS ORDERED: Nitroglycerin 0.4 MG Tab.SL SL PRN (14:23)
[2022-07-11 14:41] LABS: HEMATOCRIT 31.7 % (38.4-49.7); MEAN CORPUSCULAR HEMOGLOBIN 26.7 pg (31.6-35.5); MEAN CORPUSCULAR HGB CONC 31.5 g/dL (31.6-35.5); MEAN CORPUSCULAR VOLUME 84.5 fL (81.4-99.0); RED BLOOD CELL COUNT 3.75 M/uL (4.14-5.76); WHITE BLOOD CELL COUNT,WBC 5.7 K/uL (3.2-11.0)
[2022-07-11 15:11] LABS: ALANINE AMINOTRANSFERASE,ALT 29 U/L (12-78); ALBUMIN 3.6 g/dL (3.4-5.0); ALKALINE PHOSPHATASE 86 U/L (46-116); ANION GAP 11.1 mmol/L (5.0-14.0); ASPARTATE AMNIOTRANSFERASE,AST 30 U/L (15-37); BILIRUBIN TOTAL 0.4 mg/dL (0.2-1.0); BLOOD UREA NITROGEN,BUN 13 mg/dL (7-18); CALCIUM 8.6 mg/dL (8.5-10.1); CARBON DIOXIDE,CO2 25 mmol/L (21-32); CHLORIDE,CL 106 mmol/L (100-108); CREATININE 0.8 mg/dL (0.8-1.3); ESTIMATED GFR 90 mL/min (>60); GLUCOSE RANDOM 72 mg/dL (74-106); POTASSIUM,K 4.3 mmol/L (3.6-5.2); PRO B-TYPE NATRIUR PEPT,BNPPRO 455 pg/mL (5-450); PROTEIN TOTAL,TP 7.1 g/dL (6.4-8.2); SODIUM,NA 142 mmol/L (140-148)
[2022-07-11 15:23] LABS: INR 1.1
[2022-07-11 16:19] LABS: APPEARANCE,URINE CLEAR (CLEAR); BILIRUBIN,URINE NEGATIVE (NEGATIVE); COLOR,URINE YELLOW (YELLOW); GLUCOSE,URINE NEGATIVE (NEGATIVE); KETONES,URINE NEGATIVE (NEGATIVE); LEUKOCYTE ESTERASE,URINE NEGATIVE (NEGATIVE); NITRITE,URINE NEGATIVE (NEGATIVE); OCCULT BLOOD,URINE NEGATIVE (NEGATIVE); PROTEIN,URINE NEGATIVE (NEGATIVE); UROBILINOGEN,URINE 0.2 EU/dL (0.2-1.0)
[2022-07-11 16:25] LABS: AMORPHOUS SEDIMENT,URINE NOT SEEN; BACTERIA,URINE RARE; EPITHELIAL CELLS,URINE RARE; MUCUS,URINE RARE; RBC,URINE 0-5 (0-5); WBC,URINE 0-5 (0-5)
[2022-07-11] MEDS ORDERED: Sodium Chloride 0.9% 75 ML IV ONE (16:46)
[2022-07-11] MEDS ORDERED: Iopamidol 755 Mg/ML 100 ML Bottle IV ONE (16:46)
[2022-07-11] MEDS ORDERED: Sodium Chloride 0.9% 10 ML Syringe FLUSH ONE (16:46)
[2022-07-11 17:42] VITALS: BP 136/49; PULSE 55
== END 2022-07-11 19:41 | disposition home or self-care (01) ==
LOC: JP.ED 14:00
DX: R06.02 Shortness of breath (principal); R61 Generalized hyperhidrosis; I25.10 Atherosclerotic heart disease of native coronary artery without angina pectoris; I10 Essential (primary) hypertension; I25.2 Old myocardial infarction; I48.91 Unspecified atrial fibrillation; E11.9 Type 2 diabetes mellitus without complications; Z88.8 Allergy status to other drugs, medicaments and biological substances; Z79.82 Long term (current) use of aspirin; Z79.84 Long term (current) use of oral hypoglycemic drugs; Z79.01 Long term (current) use of anticoagulants; Z79.899 Other long term (current) drug therapy; Z95.1 Presence of aortocoronary bypass graft; Z87.891 Personal history of nicotine dependence
CPT/HCPCS: 36415; 71275; 80053; 81001; 82947; 83605; 83880; 84484; 85027; 85379; 85610; 93005; 96360; 96361; 99285; J3490; J7030; Q9967

== ENCOUNTER → 2023-02-20 | Day surgery (SDC) | payer MEDICARE ==
[~2023-02-20] MED LIST: Propofol 200 MG/20 ML SDV ONE; Sodium Chloride 0.9% 1,000 ML IV SCH; fentaNYL 50 MCG/ML SDV ONE
[2023-02-20 08:40] VITALS: BP 128/81; PULSE 64
== END ==
LOC: JP.SDS 06:21
PROVIDERS: ATTEND Surgery
DX: K20.90 Esophagitis, unspecified without bleeding (principal); K29.70 Gastritis, unspecified, without bleeding; K22.89 Other specified disease of esophagus; I11.0 Hypertensive heart disease with heart failure; I50.9 Heart failure, unspecified; I25.10 Atherosclerotic heart disease of native coronary artery without angina pectoris
CPT/HCPCS: 43239; J2704; J3010; J7030

== ENCOUNTER 2023-11-19 14:28 | Emergency (ER) | payer MEDICARE ==
[2023-11-19] MEDS ORDERED: Sodium Chloride 0.9% 10 ML Syringe FLUSH PRN (14:40)
[2023-11-19 15:02] LABS: HEMATOCRIT 33.5 % (38.4-49.7); HEMOGLOBIN 10.8 g/dL (12.9-16.9); MEAN CORPUSCULAR HEMOGLOBIN 30.4 pg (31.6-35.5); MEAN CORPUSCULAR HGB CONC 32.2 g/dL (31.6-35.5); MEAN CORPUSCULAR VOLUME 94.4 fL (81.4-99.0); PLATELET COUNT,PLT 113 K/uL (130-375); RED BLOOD CELL COUNT 3.55 M/uL (4.14-5.76)
[2023-11-19] MEDS: Sodium Chloride 0.9% 100 ML IV SCH (15:09)
[2023-11-19] MEDS: Iopamidol 755 Mg/ML 100 ML Bottle IV ONE (15:09)
[2023-11-19 15:19] LABS: C-REACTIVE PROTEIN 12.09 mg/dL (<0.50); CALCIUM 9.1 mg/dL (8.5-10.1); CREATININE 1.4 mg/dL (0.8-1.3); EST CRCL DRUG DOSING (CG) 44.07 mL/min; POTASSIUM,K 4.5 mmol/L (3.6-5.2)
[2023-11-19 15:20] LABS: ANION GAP 15.5 mmol/L (5.0-14.0)
[2023-11-19 15:22] LABS: WHITE BLOOD CELL COUNT,WBC 35.6 K/uL (3.2-11.0)
[2023-11-19 15:23] LABS: ATYPICAL LYMPHOCYTES RARE; LYMPHOCYTES ABSOLUTE MAN 2.49 K/uL (0.8-3.3); LYMPHOCYTES PERCENT MAN 7 % (24-44); METAMYELOCYTE ABSOLUTE MAN 1.07 K/uL; METAMYELOCYTE PERCENT MAN 3 %; MONOCYTES PERCENT MAN 34 % (2-6); NEUTROPHILS ABSOLUTE MAN 19.94 K/uL (1.0-7.6); SEG NEUTROPHILS PERCENT MAN 56 % (36-66)
[2023-11-19 15:27] LABS: LACTIC ACID 2.3 mmol/L (0.4-2.0)
[2023-11-19] MEDS: Sodium Chloride 0.9% 1,000 ML IV ONE ×2 (15:35→16:30)
[2023-11-19] MEDS: Piperacillin/Tazobactam 4.5 GM in Sodium Chloride 0.9% 100 ML IV ONE (15:56)
[2023-11-19] MEDS: Vancomycin 2 GM in Sodium Chloride 0.9% 500 ML IV ONE (16:29)
[2023-11-19] MEDS: traMADol 50 MG Tab PO ONE (17:47)
[2023-11-19 18:27] VITALS: BP 110/56; PULSE 108
== END 2023-11-19 18:24 ==
LOC: JP.ED 14:28
DX: R09.02 Hypoxemia (principal); R06.02 Shortness of breath; M25.552 Pain in left hip; D72.829 Elevated white blood cell count, unspecified; Z96.652 Presence of left artificial knee joint; I10 Essential (primary) hypertension; I48.91 Unspecified atrial fibrillation; I25.10 Atherosclerotic heart disease of native coronary artery without angina pectoris; I25.2 Old myocardial infarction; E11.9 Type 2 diabetes mellitus without complications; Z95.1 Presence of aortocoronary bypass graft; W19.XXXA Unspecified fall, initial encounter; Y92.129 Unspecified place in nursing home as the place of occurrence of the external cause
CPT/HCPCS: 36415; 71275; 73502; 73560; 80048; 83605; 84145; 85025; 86140; 87040; 93005; 93971; 96365; 96366; 96367; 99285; A9270; J2543; J3370; J3490; J7030; J7040; Q9967; 93010

== ENCOUNTER 2023-12-22 10:01 | Emergency (ER) | payer MEDICARE ==
[2023-12-22 10:30] LABS: HEMATOCRIT 39.7 % (38.4-49.7); HEMOGLOBIN 12.3 g/dL (12.9-16.9); MEAN CORPUSCULAR HEMOGLOBIN 28.6 pg (31.6-35.5); MEAN CORPUSCULAR VOLUME 92.3 fL (81.4-99.0); PLATELET COUNT,PLT 35 K/uL (130-375); WHITE BLOOD CELL COUNT,WBC 14.5 K/uL (3.2-11.0)
[2023-12-22 10:53] LABS: ALANINE AMINOTRANSFERASE,ALT 39 U/L (12-78); ALKALINE PHOSPHATASE 116 U/L (46-116); ANION GAP 16.4 mmol/L (5.0-14.0); ASPARTATE AMNIOTRANSFERASE,AST 53 U/L (15-37); BILIRUBIN TOTAL 0.8 mg/dL (0.2-1.0); BLOOD UREA NITROGEN,BUN 24 mg/dL (7-18); CALCIUM 9.5 mg/dL (8.5-10.1); CARBON DIOXIDE,CO2 24 mmol/L (21-32); CHLORIDE,CL 101 mmol/L (100-108); CREATININE 1.3 mg/dL (0.8-1.3); EST CRCL DRUG DOSING (CG) 48.91 mL/min; ESTIMATED GFR 55 mL/min (>60); GLUCOSE RANDOM 158 mg/dL (74-106); POTASSIUM,K 4.4 mmol/L (3.6-5.2); PROTEIN TOTAL,TP 8.1 g/dL (6.4-8.2); SODIUM,NA 137 mmol/L (140-148); T4 FREE 1.28 ng/dL (0.76-1.46); TROPONIN I HIGH SENSITIVITY 10.9 pg/mL (<=60.3); TSH ULTRASENSITIVE 1.915 uIU/mL (0.358-3.740)
[2023-12-22 10:55] LABS: BAND ABSOLUTE MAN 0.44 K/uL; BAND PERCENT MAN 3 % (5-11); LYMPHOCYTES ABSOLUTE MAN 1.74 K/uL (0.8-3.3); LYMPHOCYTES PERCENT MAN 12 % (24-44); METAMYELOCYTE ABSOLUTE MAN 0.29 K/uL; METAMYELOCYTE PERCENT MAN 2 %; MONOCYTES ABSOLUTE MAN 3.19 K/uL (0.20-0.90); MONOCYTES PERCENT MAN 22 % (2-6); MYELOCYTE ABSOLUTE MAN 0.15; MYELOCYTE PERCENT MAN 1 %; SEG NEUTROPHILS PERCENT MAN 60 % (36-66)
[2023-12-22] MEDS: Sodium Chloride 0.9% 1,000 ML IV STA ×2 (11:08→12:17)
[2023-12-22 12:36] LABS: APPEARANCE,URINE CLEAR (CLEAR); BILIRUBIN,URINE NEGATIVE (NEGATIVE); COLOR,URINE YELLOW (YELLOW); GLUCOSE,URINE NEGATIVE (NEGATIVE); KETONES,URINE NEGATIVE (NEGATIVE); LEUKOCYTE ESTERASE,URINE NEGATIVE (NEGATIVE); NITRITE,URINE NEGATIVE (NEGATIVE); OCCULT BLOOD,URINE NEGATIVE (NEGATIVE); PROTEIN,URINE 30 mg/dL (NEGATIVE); UROBILINOGEN,URINE 0.2 EU/dL (0.2-1.0)
[2023-12-22 12:45] LABS: AMORPHOUS SEDIMENT,URINE MODERATE; AMPHETAMINES SCREEN, URINE NEGATIVE (NEGATIVE); BACTERIA,URINE FEW; BARBITURATE SCREEN,URINE NEGATIVE (NEGATIVE); BENZODIAZEPINES SCREEN,URINE NEGATIVE (NEGATIVE); EPITHELIAL CELLS,URINE FEW; METHADONE SCREEN, URINE NEGATIVE (NEGATIVE); METHAMPHETAMINES SCREEN, URINE NEGATIVE (NEGATIVE); MUCUS,URINE RARE; OXYCODONE SCREEN,URINE NEGATIVE (NEGATIVE); PROPOXYPHENE SCREEN,URINE NEGATIVE (NEGATIVE); RBC,URINE 0-5 (0-5); THC SCREEN,URINE 50 NG/ML NEGATIVE (NEGATIVE); WBC,URINE 0-5 (0-5)
[2023-12-22 13:53] VITALS: BP 116/66; PULSE 100
== END 2023-12-22 15:05 | disposition home or self-care (01) ==
LOC: JP.ED 10:01
DX: R00.0 Tachycardia, unspecified (principal); I25.10 Atherosclerotic heart disease of native coronary artery without angina pectoris; I25.2 Old myocardial infarction; I10 Essential (primary) hypertension; M19.90 Unspecified osteoarthritis, unspecified site; E11.9 Type 2 diabetes mellitus without complications; Z95.5 Presence of coronary angioplasty implant and graft; Z87.891 Personal history of nicotine dependence; Z88.8 Allergy status to other drugs, medicaments and biological substances; Z79.82 Long term (current) use of aspirin; Z79.84 Long term (current) use of oral hypoglycemic drugs; Z79.891 Long term (current) use of opiate analgesic; Z79.899 Other long term (current) drug therapy
CPT/HCPCS: 36415; 80053; 80305; 81001; 84439; 84443; 84484; 85025; 96360; 96361; 99285; J7030